=== PATIENT | male | born 1950 | race Caucasian/White ===

== ENCOUNTER → 2020-01-20 | Outpatient (CLI) | payer BC, SELFPAY ==
--- NOTE | 2020-01-20 08:18 | MRI_ITS ---
STUDY: MRI BRAIN WITH AND WITHOUT CONTRAST REASON FOR EXAM: Male, 69 years old. 3RD NERVE PALSEY R EYE TECHNIQUE: Standardized multiplanar fat and water weighted pulse sequences were obtained. IV Yes YES was administered for the contrast portion of the examination. COMPARISON: None. FINDINGS: There is moderate cerebral atrophy with widening of the extra-axial spaces and ventricular dilatation. There are multiple white matter hyperintensities, distributed throughout the deep white matter tracts of the cerebral hemispheres, consistent with moderate chronic white matter ischemic changes. Possible punctate focus of restricted diffusion right colliculus. 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 There is no extra-axial fluid accumulation. Normal flow voids within the major intracranial circulation suggesting patency by spin echo criteria. Normal venous enhancement. There is no enhancing intra-axial or extra-axial abnormality. Normal sella turcica, pituitary gland, infundibular stalk, optic chiasm and hypothalamus. Normal tectal plate and pineal gland. Normal midbrain, sandhya and medulla. Normal cerebellum. Normal basal cisterns. Normal bilateral temporal bones. Normal bilateral internal auditory canals. Possible slight disconjugate gaze. Normal visualized paranasal sinuses. Normal calvarium and skull base. Normal visualized soft tissue structures. Normal visualized upper cervical spine. MRI/Brain W/WO Contrast IMPRESSION: Possible acute or subacute punctate infarct right posterior midbrain Electronically Signed: Nir Reaves MD at 17:49 EDT , Service support ,
--- NOTE | 2020-01-20 08:18 | MRI_ITS ---
STUDY: MRA OF THE HEAD WITHOUT CONTRAST REASON FOR EXAM: Male, 69 years old. 3RD NERVE PALSEY R EYE TECHNIQUE: 3-D lavx-ra-saowku (TOF) imaging was performed with MIPs. The study was performed unenhanced. COMPARISON: None. FINDINGS: Normal bilateral petrous carotid arteries. Normal right cavernous carotid artery with a normal supraclinoid bifurcation. Normal left cavernous carotid artery with a normal supraclinoid bifurcation. Normal right A1 segments of the anterior cerebral artery. Normal left A1 segments of the anterior cerebral artery. Normal intact anterior communicating artery (ACOM). Normal bilateral A2 segments of the anterior cerebral arteries. Normal right M1 and M2 segments of the middle cerebral arteries, with a normal M1 bifurcation. Normal left M1 and M2 segments of the middle cerebral arteries, with a normal M1 bifurcation. There is non-visualization of the right posterior communicating artery (PCOM). There is non-visualization of the left posterior communicating artery (PCOM). Normal bilateral vertebral arteries. Normal basilar artery with a normal basilar bifurcation. The visualized bilateral superior cerebellar (SCA) arteries are normal. Normal bilateral P1, P2 and visualized P3 segments of the posterior cerebral arteries. There is no demonstrated aneurysm of the ey[place] of Marie. There is no major vessel occlusion or hemodynamically significant stenosis. There is no demonstrated abnormality of the visualized brain. MRI/MRA Head ONLY without Contrast IMPRESSION: Normal MRA of the head Electronically Signed: Rica Meneses, at 0:42 EDT Tel , Service support ,
[2020-01-20 09:40] LABS: CREATININE FINGERSTICK 0.8 mg/dL (0.70-1.30); EGFR FINGERSTICK > 60.0000 mL/min (>60)
== END | disposition home or self-care (01) ==
PROVIDERS: Referring Provider Ophthalmology; Visit Provider Ophthalmology
DX: H49.01 Third [oculomotor] nerve palsy, right eye (principal)
CPT/HCPCS: 70544; 70553; A9575

== ENCOUNTER 2021-08-01 03:13 | Inpatient (IN) | payer OTHER, SELFPAY ==
[2021-08-01] VITALS (35 sets, daily range): BP systolic 105–149; BP diastolic 60–75; PULSE 44–66; RESP 12–37; TEMP 35.7–36.9; O2SAT 88–98; BMI 35.9; BMI 36.0
--- NOTE | 2021-08-01 03:17 | EKG12_ITS ---
Test Reason : DYSRHYTHMIA Blood Pressure : / mmHG Vent. Rate : 065 BPM Atrial Rate : 065 BPM P-R Int : 164 ms QRS Dur : 168 ms QT Int : 452 ms P-R-T Axes : 002 018 -02 degrees QTc Int : 470 ms Sinus rhythm with Premature atrial complexes in a pattern of bigeminy Right bundle branch block Abnormal ECG Confirmed by JENA MOE, DEEPA ([id number]), map editor JOHN GRIFFITHS ([id number]) on 08/02/2021 1:20:06 PM Referred By: BAILEY Confirmed By:ABILIO BELLA MD
--- NOTE | 2021-08-01 03:18 | RAD_ITS ---
STUDY: X-RAY CHEST REASON FOR EXAM: Male, 71 years old. Cough TECHNIQUE: Single AP portable view of the chest. COMPARISON: None. FINDINGS: There are multifocal patchy centrally located opacities in the lungs. There is no demonstrated pleural abnormality. There is mild cardiac enlargement. Normal mediastinum and reema. Normal visualized pulmonary arteries. Normal visualized aortic arch and descending thoracic aorta. There are diffuse degenerative changes of the visualized thoracic spine. Normal visualized ribs, clavicles, and shoulders. There is no demonstrated abnormality of the visualized soft tissue structures of the upper abdomen. RAD/Chest 1 View (Portable) IMPRESSION: Multifocal centrally located patchy groundglass opacities consider pulmonary edema and/or diffuse pneumonia. Electronically Signed: Clarissa Montes MD at 3:52 EDT Tel , Service support ,
[2021-08-01] MEDS: dexAMETHasone 4 MG/ML Vial 6 MG IV (03:25)
--- NOTE | 2021-08-01 03:25 | EDS_ITS ---
HPI History of Present Illness Chief Complaint: Shortness of Breath Informant: patient and EMS Onset/Context/Timing Onset: Days Narrative Narrative: Patient presents via EMS secondary to shortness of breath. Patient states he developed symptoms of Covid on the . He was not able to be tested until Thursday the and tested positive. He called squad early this morning secondary to increased shortness of breath. He does report cough. EMS notes his O2 sat was in the 60s in the house. On nonrebreather he is satting 88% on arrival to the ER. Patient is alert and answering questions. He does not appear to be in distress. He states he has multiple medications for medical problems but does not know specific details. He does note that he is on Plavix because of a heart stent. [facility] Medical History (Updated 08/01/21 @ 05:[address] Tara Melgar MD) CAD (coronary artery disease) Diabetes HLD (hyperlipidemia) Hypertension Myocardial infarct Home Medications allopurinol 300 mg PO DAILY 08/01/21 [History Last Taken Unknown] allopurinol 300 mg PO DAILY 08/01/21 [History Last Taken Unknown] amlodipine 5 mg PO DAILY 08/01/21 [History Last Taken Unknown] amlodipine 5 mg PO DAILY 08/01/21 [History Last Taken Unknown] aspirin [Baby Aspirin] 81 mg PO DAILY 08/01/21 [History Last Taken Unknown] atorvastatin 40 mg PO DAILY 08/01/21 [History Last Taken Unknown] atorvastatin 40 mg PO QHS 08/01/21 [History Last Taken Unknown] carvedilol 25 mg PO BID 08/01/21 [History Last Taken Unknown] chlorthalidone 25 mg PO DAILY 08/01/21 [History Last Taken Unknown] chlorthalidone 25 mg PO DAILY 08/01/21 [History Last Taken Unknown] clopidogrel 75 mg PO DAILY 08/01/21 [History Last Taken Unknown] clopidogrel 75 mg PO DAILY 08/01/21 [History Last Taken Unknown] furosemide 20 mg PO DAILY 08/01/21 [History Last Taken Unknown] furosemide 20 mg PO DAILY 08/01/21 [History Last Taken Unknown] lisinopril 40 mg PO DAILY 08/01/21 [History Last Taken Unknown] lisinopril 40 mg PO DAILY 08/01/21 [History Last Taken Unknown] metformin 1,000 mg PO DAILY 08/01/21 [History Last Taken Unknown] metformin 500 mg PO DAILY 08/01/21 [History Last Taken Unknown] metformin 500 mg PO UD 08/01/21 [History Last Taken Unknown] naproxen 250 mg PO BID 08/01/21 [History Last Taken Unknown] Allergy/AdvReac Type Severity Reaction Status Date / Time ticagrelor [From Brilinta] Allergy Shortness Verified 08/01/21 03:19 of breath Family History (Updated 08/01/21 @ 05:[address] Tara Melgar MD) Mother Hypertension Surgical History (Updated 08/01/21 @ 05:[address] Tara Melgar MD) History of coronary artery stent placement S/P appendectomy Social History (Updated 08/01/21 @ 05:[address] Tara Melgar MD) household members: spouse Smoking Status: Never smoker alcohol intake: current alcohol intake frequency: holidays/special occasions only substance use type: does not use ROS ROS ED Constitutional Constitutional ED: Denies chills or fever(s) Eyes Eyes: Denies change in vision ENT ENT ED: Denies sore throat Cardiovascular Cardiovascular: Denies chest pain Respiratory/Chest Respiratory/Chest: Reports cough and dyspnea Gastrointestinal Gastrointestinal: Denies abdominal pain, diarrhea or vomiting Musculoskeletal Musculoskeletal: Denies back pain Integumentary Denies rash Neurologic Neurologic: Denies headache(s) or weakness Allergic/Immunologic Allergic/Immunologic ED: Denies urticaria EXAM Physical Exam Const Vital Signs: 08/01/21 03:14 08/01/21 03:19 08/01/21 03:27 Temperature 98.3 F Temperature Source Temporal Pulse Rate 66 Respiratory Rate 30 H 29 H Respiratory Effort Short of Breath Accessory Muscle Use Respiratory Pattern Tachypnea Blood Pressure 149/75 H Blood Pressure Mean 99 Pulse Ox 88 94 Oxygen Delivery Method Non-Rebreather Non-Rebreather Bi-pap Oxygen Flow Rate (L/min) 15 15 Fraction of Inspired Oxygen (FIO2) 100 08/01/21 03:30 08/01/21 04:10 Temperature 98.5 F Temperature Source Temporal Pulse Rate 65 54 L Respiratory Rate 36 H 33 H Respiratory Effort Respiratory Pattern Tachypnea Blood Pressure 127/60 H Blood Pressure Mean 82 Pulse Ox 98 96 Oxygen Delivery Method Bi-pap Oxygen Flow Rate (L/min) Fraction of Inspired Oxygen (FIO2) 100 Positive well nourished and well developed General Appearance ED: well developed HEENT Reports normocephalic and head/scalp atraumatic Eyes PERRL and EOMs intact bilaterally Neck supple Chest Wall inspection of chest normal and palpation of chest normal Resp Resp Narrative: Mildly tachypneic. Auscultation: diminished lung sounds Cardio regular rate and regular rhythm GI non-tender Palpation: soft Extremity normal to inspection Neuro oriented x3 Neuro Narrative: No focal neuro deficits. Sensorium / Orientation: alert Psych mental status grossly normal Skin no rashes or lesions noted MDM MDM MDM Narrative Medical decision making narrative: On arrival to the emergency room patient was satting 88% on nonrebreather. He was placed on BiPAP. O2 sats are now in the mid 90s. Lab work, chest x-ray, EKG obtained. Lab Data Attestation: I reviewed the patient's lab results. Labs: Laboratory Results - last 24 hr 08/01/21 08/01/21 08/01/21 03:25 03:25 03:25 WBC 7.6 RBC 4.49 L Hgb 14.1 Hct 42.3 MCV 94.2 H MCH 31.4 MCHC 33.3 RDW Std Deviation 49.0 H RDW Coeff of Myriam 14.3 Plt Count 219 MPV 10.6 Immature Gran % (Auto) 2.100 H Neut % (Auto) 81.2 H Lymph % (Auto) 13.3 L Jones % (Auto) 2.6 Eos % (Auto) 0.3 Baso % (Auto) 0.5 Absolute Neuts (auto) 6.2 Absolute Lymphs (auto) 1.01 Nucleated RBC % 0 D-Dimer Quant (PE/DVT) 2.34 H* Sodium Potassium Chloride Carbon Dioxide Anion Gap BUN Creatinine Estim Creat Clear Calc Est GFR (MDRD) Af Amer Est GFR (MDRD) Non-Af BUN/Creatinine Ratio Glucose Lactic Acid Calcium Magnesium Ferritin Total Bilirubin AST ALT Alkaline Phosphatase Lactate Dehydrogenase Troponin I High Sens C-React Prot Ext Range B-Natriuretic Peptide Total Protein Albumin Globulin Albumin/Globulin Ratio Procalcitonin 0.09 08/01/21 08/01/21 08/01/21 03:25 03:25 03:25 WBC RBC Hgb Hct MCV MCH MCHC RDW Std Deviation RDW Coeff of Myriam Plt Count MPV Immature Gran % (Auto) Neut % (Auto) Lymph % (Auto) Jones % (Auto) Eos % (Auto) Baso % (Auto) Absolute Neuts (auto) Absolute Lymphs (auto) Nucleated RBC % D-Dimer Quant (PE/DVT) Sodium 137 Potassium 3.4 L Chloride 102 Carbon Dioxide 27.0 Anion Gap 8 BUN 35 H Creatinine 0.82 Estim Creat Clear Calc 88.00 Est GFR (MDRD) Af Amer 120 Est GFR (MDRD) Non-Af 99 BUN/Creatinine Ratio 42.9 H Glucose 163 H Lactic Acid 2.3 H* Calcium 8.1 L Magnesium 2.1 Ferritin 1514 H Total Bilirubin 1.00 AST 79 H ALT 58 Alkaline Phosphatase 77 Lactate Dehydrogenase 609 H Troponin I High Sens 24 C-React Prot Ext Range 84.90 H B-Natriuretic Peptide Total Protein 7.0 Albumin 2.5 L Globulin 4.5 H Albumin/Globulin Ratio 0.6 L Procalcitonin 08/01/21 03:25 WBC RBC Hgb Hct MCV MCH MCHC RDW Std Deviation RDW Coeff of Myriam Plt Count MPV Immature Gran % (Auto) Neut % (Auto) Lymph % (Auto) Jones % (Auto) Eos % (Auto) Baso % (Auto) Absolute Neuts (auto) Absolute Lymphs (auto) Nucleated RBC % D-Dimer Quant (PE/DVT) Sodium Potassium Chloride Carbon Dioxide Anion Gap BUN Creatinine Estim Creat Clear Calc Est GFR (MDRD) Af Amer Est GFR (MDRD) Non-Af BUN/Creatinine Ratio Glucose Lactic Acid Calcium Magnesium Ferritin Total Bilirubin AST ALT Alkaline Phosphatase Lactate Dehydrogenase Troponin I High Sens C-React Prot Ext Range B-Natriuretic Peptide 51.9 Total Protein Albumin Globulin Albumin/Globulin Ratio Procalcitonin Radiography Chest X-Ray - ED: 1 View, Read by ED Physician, Right Infiltrate and Left Infiltrate Diagnostic Testing: Radiology Impression Chest X-Ray 08/01/21 03:18 IMPRESSION: Multifocal centrally located patchy groundglass opacities consider pulmonary edema and/or diffuse pneumonia. Electronically Signed: Clarissa Montes MD at 3:52 EDT Tel , Service support , Chest CTA 08/01/21 04:12 IMPRESSION: Multifocal pneumonia pattern which is most likely consistent with Covid pneumonia. NO pulmonary embolism. Partially visualized splenomegaly. Cardiomegaly coronary disease. Degenerative change of the shoulder joints and thoracic spine. Electronically Signed: Clarissa Montes MD at 5:18 EDT Tel , Service support , EKG Initial EKG: Attestation: I personally reviewed and interpreted this EKG as follows: Interpretation: Sinus Rhythm (Sinus at 65 with right bundle branch block. No prior studies available for comparison. No obvious ischemia.) Treatment and Re-Evaluation Comments:: On BiPAP patient's O2 sats are in the mid 90s. He is requiring 100% FiO2. Chest x-ray shows significant bilateral infiltrates. White count is normal. D-dimer is elevated. I will speak with hospitalist for admission to ICU. We will obtain CTA of the chest prior to the patient going upstairs. Patient was given a dose of Decadron on arrival. Critical Care Time Critical care time (excluding procedures): 30-74 minutes (35), Discussing w/Patient &/or Family/Nub Card Tender, Arranging Admission or Transfer and Performing Direct Patient Care at Bedside Discharge Plan Dx/Rx/DC Orders Clinical Impression: COVID-19, Pneumonia due to COVID-19 virus, Respiratory failure Disposition Disposition: Acute Care Hospital [facility] Discharge Date/Time: 08/01/21 05:32
[2021-08-01 03:54] LABS: Absolute Lymphocyte Count 1.01 X10^3/uL (0.83-4.51); Absolute Neutrophil Count 6.2 X10^3/uL (2.0-7.7); Basophil# 0.04 X10^3/uL; Basophil% 0.5 % (0-1); Eosinophil# 0.02 X10^3/uL; Eosinophils% 0.3 % (0-5); Hematocrit 42.3 % (40-54); Hemoglobin 14.1 g/dL (13.0-16.5); Lymphocyte # 1.01 X10^3/ul (0.83-4.51); Lymphocyte % 13.3 % (19-41); Mean Corp Hgb Conc 33.3 g/dL (32-36); Mean Corpuscular Hgb 31.4 pg (27.0-32.0); Mean Corpuscular Volume 94.2 fL (80-94); Mean Platelet Vol. 10.6 fl (6.2-12.0); Monocyte% 2.6 % (0-10); NRBC Flagged by Analyzer 0 % (0-5); Neutrophil # 6.16 X10^3/uL (2.7-7.7); Neutrophil % 81.2 % (47-70); Platelet Count 219 K/mm3 (150-450); RBC Distribution Width CV 14.3 % (11.6-14.6); Red Blood Count 4.49 M/mm3 (4.6-6.2); White Blood Count 7.6 K/mm3 (4.4-11.0)
[2021-08-01 04:03] LABS: D-Dimer Quantitative (DVT/PE) 2.34 FEU/ug/m (0.27-0.49)
[2021-08-01 04:09] LABS: ALB/GLOB Ratio 0.6 RATIO (0.9-2.4); AST(SGOT) 79 U/L (15-37); Alanine Aminotransfer ALT/SGPT 58 U/L (16-61); Albumin, Serum 2.5 g/dL (3.2-5.0); Alkaline Phosphatase 77 U/L (45-117); Anion Gap 8 (5-15); BUN 35 mg/dL (7-18); BUN/Creat Ratio 42.9 RATIO (10-20); Calcium,Total 8.1 mg/dL (8.5-10.1); Chloride 102 mmol/L (98-107); Creatinine, Serum 0.82 mg/dL (0.70-1.30); EST Glomerular Filtration Rate 99 mL/min (>60); Est Glom Filt Rate - Afr Amer 120 mL/min (>60); Globulin 4.5 g/dL (2.2-4.2); Glucose 163 mg/dL (74-106); Potassium 3.4 mmol/L (3.5-5.1); Sodium Level 137 mmol/L (136-145); Troponin-I HS 24 pg/mL (3.0-78.0)
--- NOTE | 2021-08-01 04:12 | CT_ITS ---
STUDY: CTA CHEST REASON FOR EXAM: Male, 71 years old. Covid +, resp failure, elevated d-dimer RADIATION DOSAGE (If Supplied By Facility): CTDIvol = ( 13.85 ) mGy, DLP = ( 466.93 ) mGycm TECHNIQUE: The examination was performed with the intravenous administration of IV 100mL Isovue-370. Post-processing of the angiographic images was performed, with multiplanar reformation and 3D reconstruction. Individualized dose optimization techniques were used for this CT. COMPARISON: Chest x-ray August 01, 2021 chest x-ray FINDINGS: Normal enhancement of the main pulmonary artery and right and left pulmonary arteries. Normal enhancement of the bilateral peripheral pulmonary arteries. There is no demonstrated pulmonary embolism. There is limited contrast enhancement of the aorta at the time of this study there is partial calcification. There is no demonstrated aortic dissection. There are coronary calcifications. There is a stent in the left anterior descending coronary artery. There are nonspecific subcentimeter mediastinal lymph nodes. Normal hilar regions. Normal visualized trachea and bronchi. There multifocal patchy groundglass opacities some areas of crazy paving. Normal pleura. Normal chest wall structures. There are degenerative changes of thoracic spine. There is advanced degenerative change of the left greater than right shoulder joints. There is moderate splenomegaly CT/CTA Chest W/WO Contrast IMPRESSION: Multifocal pneumonia pattern which is most likely consistent with Covid pneumonia. NO pulmonary embolism. Partially visualized splenomegaly. Cardiomegaly coronary disease. Degenerative change of the shoulder joints and thoracic spine. Electronically Signed: Clarissa Montes MD at 5:18 EDT Tel , Service support ,
[2021-08-01 04:16] LABS: Procalcitonin 0.09 ng/mL (0.00-0.09)
[2021-08-01 04:34] LABS: Lactic Acid 2.3 mmol/L (0.4-1.9)
--- NOTE | 2021-08-01 04:38 | PCM.HP.STD ---
HPI - General General Date of Admission: 08/01/21 Date of Service: 08/01/21 HPI Narrative The patient is a 71 y/o M w/ PMHx: CAD s/p PCI, HTN, HLD, Diabetes mellitus type II, Obesity who presents to the [facility] ED on 08/01/21 with history of onset Covid type symptoms on 07/20/2021, testing eventually on 07/26/2021 with positive status with progressively worsening dyspnea as well as cough with EMS call secondary to severity reporting that his oxygenation was 60% upon their initial evaluation with immediate necessity for nonrebreather prompting transition to the ED for evaluation. Patient is unvaccinated. He reports symptoms including loss of taste and smell, nausea without emesis, occasional loose stool without abdominal cramping in addition to cough and dyspnea. He denies any fever, chills associated. He notes his is also ill but reports her as being less severe. Work-up in the ED included T 98.3, heart 66, BP 149/75, respiratory rate 30 initially with pulse ox 88% on a nonrebreather transition to BiPAP with respiratory rate 36, 98% on 100 FiO2, rapid Covid antigen positive, CBC w/ WBC 7.6, hemoglobin 14.1, platelet 219 with mildly increased immature granulocytes, D-dimer 2.34, CMP with potassium 3.4, BUN/creatinine 35/0.82, glucose 163, lactic acid 2.3, AST/ALT 79/58, alk phos 77, procalcitonin 0.09, high-sensitivity troponin 24, chest x-ray with multifocal centrally located patchy groundglass opacities, CTPA multifocal pneumonia consistent with Covid pneumonia with no evidence of pulmonary emboli, cardiomegaly with coronary disease, partially visualized splenomegaly. In the ED given patient presentation, patient as noted transition to BiPAP, administered IV Decadron 6 mg x 1. [facility] Medical History (Updated 08/01/21 @ 05:[address] Tara Melgar MD) CAD (coronary artery disease) Diabetes HLD (hyperlipidemia) Hypertension Myocardial infarct Home Medications allopurinol 300 mg PO DAILY 08/01/21 [History Last Taken Unknown] allopurinol 300 mg PO DAILY 08/01/21 [History Last Taken Unknown] amlodipine 5 mg PO DAILY 08/01/21 [History Last Taken Unknown] amlodipine 5 mg PO DAILY 08/01/21 [History Last Taken Unknown] aspirin [Baby Aspirin] 81 mg PO DAILY 08/01/21 [History Last Taken Unknown] atorvastatin 40 mg PO DAILY 08/01/21 [History Last Taken Unknown] atorvastatin 40 mg PO QHS 08/01/21 [History Last Taken Unknown] carvedilol 25 mg PO BID 08/01/21 [History Last Taken Unknown] chlorthalidone 25 mg PO DAILY 08/01/21 [History Last Taken Unknown] chlorthalidone 25 mg PO DAILY 08/01/21 [History Last Taken Unknown] clopidogrel 75 mg PO DAILY 08/01/21 [History Last Taken Unknown] clopidogrel 75 mg PO DAILY 08/01/21 [History Last Taken Unknown] furosemide 20 mg PO DAILY 08/01/21 [History Last Taken Unknown] furosemide 20 mg PO DAILY 08/01/21 [History Last Taken Unknown] lisinopril 40 mg PO DAILY 08/01/21 [History Last Taken Unknown] lisinopril 40 mg PO DAILY 08/01/21 [History Last Taken Unknown] metformin 1,000 mg PO DAILY 08/01/21 [History Last Taken Unknown] metformin 500 mg PO DAILY 08/01/21 [History Last Taken Unknown] metformin 500 mg PO UD 08/01/21 [History Last Taken Unknown] naproxen 250 mg PO BID 08/01/21 [History Last Taken Unknown] Allergy/AdvReac Type Severity Reaction Status Date / Time ticagrelor [From Brilinta] Allergy Shortness Verified 08/01/21 03:19 of breath Family History (Updated 08/01/21 @ 05:[address] Tara Melgar MD) Mother Hypertension other (Father without marked medical history; however, when patient was 5 in accident.) Surgical History (Updated 08/01/21 @ 05:[address] Tara Melgar MD) History of coronary artery stent placement S/P appendectomy Social History (Updated 08/01/21 @ 05:[address] Tara Melgar MD) household members: spouse Smoking Status: Never smoker alcohol intake: current alcohol intake frequency: holidays/special occasions only substance use type: does not use ROS ROS Narrative Admission Review of Systems: CONSTITUTIONAL: No weight loss, fever, chills, + weakness or fatigue. HEENT: + Loss of sense of taste and smell. Eyes: No visual loss, blurred vision, double vision or yellow sclerae. Ears, Nose, Throat: No hearing loss, sneezing, congestion, runny nose or sore throat. SKIN: No rash or itching, lesions, wounds. CARDIOVASCULAR: No chest pain, chest pressure or chest discomfort, palpitations, edema, orthopnea, syncopal events. RESPIRATORY: + shortness of breath, cough, No marked sputum, wheezing, hemoptysis. GASTROINTESTINAL: + anorexia, nausea without vomiting, diarrhea, No abdominal pain, melena, BRBPR. GENITOURINARY: No dysuria, frequency, urgency or retention. NEUROLOGICAL: No headache, dizziness, syncope, paralysis, ataxia, numbness or tingling in the extremities, focal weakness, change in bowel or bladder control, seizure. MUSCULOSKELETAL: No muscle, back pain, joint pain or stiffness. HEMATOLOGIC: No anemia, bleeding or bruising. LYMPHATICS: No enlarged nodes. No history of splenectomy. PSYCHIATRIC: No history of depression or anxiety. ENDOCRINOLOGIC: No reports of sweating, cold or heat intolerance. No polyuria or polydipsia. ALLERGIES: No history of asthma, hives, eczema or rhinitis. Vital Signs Vital Signs Vital Signs: 08/01/21 03:14 08/01/21 03:19 08/01/21 03:27 Temperature 98.3 F Temperature Source Temporal Pulse Rate 66 Respiratory Rate 30 H 29 H Respiratory Effort Short of Breath Accessory Muscle Use Respiratory Pattern Tachypnea Blood Pressure 149/75 H Blood Pressure Mean 99 Pulse Ox 88 94 Oxygen Delivery Method Non-Rebreather Non-Rebreather Bi-pap Oxygen Flow Rate (L/min) 15 15 Fraction of Inspired Oxygen (FIO2) 100 08/01/21 03:30 08/01/21 04:10 Temperature 98.5 F Temperature Source Temporal Pulse Rate 65 54 L Respiratory Rate 36 H 33 H Respiratory Effort Respiratory Pattern Tachypnea Blood Pressure 127/60 H Blood Pressure Mean 82 Pulse Ox 98 96 Oxygen Delivery Method Bi-pap Oxygen Flow Rate (L/min) Fraction of Inspired Oxygen (FIO2) 100 Weight Weight: 257 lb 11.526 oz Body Mass Index (BMI) 35.9 Physical Exam Narrative Physical Examination: General: Awake, alert, oriented x 3 and cooperative, seated upright in the ED bed, BiPAP in place, still some accessory muscle usage and tachypnea. Skin: Normal color, normal turgor, no icterus, no cyanosis. HEENT: AT/NC, EOMI, PERRLA, dry MM, BiPAP in place, difficult to discern any carotid bruit secondary to BiPAP noises, unable to discern NG JVD secondary to thickened neck. Lungs: Diffusely diminished breath sounds, greater bases, BiPAP in place, still ongoing mild accessory muscle usage with tachypnea, no rales, ronchi or wheezing. Heart: Regular rate and rhythm; no gallop, rub audible. Abdomen: Soft, obese, NTTP, difficult to discern distention given habitus, distant normal bowel sounds, difficult to discern any HSM secondary to habitus. Extremities: No cyanosis, clubbing, or edema. Neurological: Patient awake, alert, oriented as noted, cognitive function intact; pupils equally reactive to light and accommodation, cranial nerves II-XII grossly normal, moving all 4 extremities, no focal deficits, strength severely global decrease secondary to acute presentation. Psychiatric: Affect appears ill, evidence of respiratory distress, improved since initial ED presentation, no acute evidence of depressive or anxiety feelings. Results Lab / Micro Data Result Diagrams: 08/01/21 03:25 08/01/21 03:25 Labs: Laboratory Results - last 24 hr 08/01/21 03:25: D-Dimer Quant (PE/DVT) 2.34 H* 08/01/21 03:25: Procalcitonin 0.09 08/01/21 03:25: WBC 7.6, RBC 4.49 L, Hgb 14.1, Hct 42.3, MCV 94.2 H, MCH 31.4, MCHC 33.3, RDW Std Deviation 49.0 H, RDW Coeff of Myriam 14.3, Plt Count 219, MPV 10.6, Immature Gran % (Auto) 2.100 H, Neut % (Auto) 81.2 H, Lymph % (Auto) 13.3 L, [place] % (Auto) 2.6, Eos % (Auto) 0.3, Baso % (Auto) 0.5, Absolute Neuts (auto) 6.2, Absolute Lymphs (auto) 1.01, Nucleated RBC % 0 08/01/21 03:25: Sodium 137, Potassium 3.4 L, Chloride 102, Carbon Dioxide 27.0, Anion Gap 8, BUN 35 H, Creatinine 0.82, Estim Creat Clear Calc 88.00, Est GFR (MDRD) Af Amer 120, Est GFR (MDRD) Non-Af 99, BUN/Creatinine Ratio 42.9 H, Glucose 163 H, Calcium 8.1 L, Total Bilirubin 1.00, AST 79 H, ALT 58, Alkaline Phosphatase 77, Troponin I High Sens 24, Total Protein 7.0, Albumin 2.5 L, Globulin 4.5 H, Albumin/Globulin Ratio 0.6 L 08/01/21 03:25: Lactic Acid 2.3 H* Micro: Microbiology 08/01/21 03:20 Nasal Secretion SARS-CoV-2 Antigen (Rapid) - Final Radiology Impression Chest X-Ray 08/01/21 03:18 IMPRESSION: Multifocal centrally located patchy groundglass opacities consider pulmonary edema and/or diffuse pneumonia. Electronically Signed: Clarissa Montes MD at 3:52 EDT Tel , Service support , Assessment & Plan Assessment/Plan (1) Respiratory failure: QUALIFIERS: Chronicity: acute Respiratory failure complication: hypoxia Qualified Code(s): J96.01 - Acute respiratory failure with hypoxia (2) Pneumonia due to COVID-19 virus: PLAN: The patient is a 71 y/o M w/ PMHx: CAD s/p PCI, HTN, HLD, Diabetes mellitus type II, Obesity who presents to the [facility] ED on 08/01/21 with history of onset Covid type symptoms on 07/20/2021, testing eventually on 07/26/2021 with positive status with progressively worsening dyspnea as well as cough with EMS call secondary to severity reporting that his oxygenation was 60% upon their initial evaluation with immediate necessity for nonrebreather prompting transition to the ED for evaluation. 1. Acute Hypoxic Respiratory Failure secondary to Acute Bilateral Pneumonia secondary to Acute Viral Syndrome, COVID-19 with lactic acidosis likely secondary to hypoxemia: Acute Severe Sepsis secondary to Acute Pneumonia secondary to Acute Viral Syndrome, COVID-19: Will admit to the COVID unit, will maintain on oxygen with wean as tolerated to room air, PRN albuterol, HOB, IS parameters w/ pending sputum cultures, respiratory viral panel and urine antigens, will obtain D-dimer, CRP, CPK, Ferritin, LDH, trop and BNP, continue supportive care including q 2 hour turning including prone given no prone bed availability and judicious hydration, closely monitor for worsening status for ARDS and multiorgan failure, will consult Infectious disease, will initiate and continue IV decadron x 10 doses. Patient is > 10 days from onset sxs therefore unable to administer IV remdesivir. We will consult infectious disease and request initiation of potentially baricitinib regimen. Will add vitamin C and zinc regimen. 2. Hypokalemia: Admission K+ 3.4, magnesium level requested, supplementation given, repeat level in AM. 3. Diabetes mellitus type II: Hold oral home regimen, n.p.o. status given severity of presentation, once appropriate transition to ADA diet, accu checks w/ ISS. 4. CAD: Status post PCI x2 per patient report, will continue Plavix, statin, lisinopril, Coreg regimen. 5. Hypertension: Continue home regimen including amlodipine, Coreg, chlorthalidone, Lasix with hold parameters as needed, PRN hydralazine. 6. Hyperlipidemia: We will continue home statin therapy. 7. Gout: We will continue patient home allopurinol regimen. 8. Obesity: Encouraged lifestyle and diet changes. 9. DVT prophylaxis: SCDs, Lovenox. 10. CODE status: Patient does not have HCPOA nor living will in place. Given acute presentation with respiratory failure with COVID, discussed CODE status at length including difference between FULL code, DNR-CCA and DNR-CC status. Following discussions about the differences in these status, requested currently to maintain DNR-CCA, no intubation status until he reviews this with his . Discussed his current precarious status, the very serious nature of COVID PNA and encouraged him to review these with her early in his presentation. Advanced Care Planning Face to Face Time: 16 minutes. Charges/Coding Visit Charges Inpatient E&M: 31218 Init Hosp L3 Procedures Hospitalists Procedures: [id number] Advncd Care Plan 30 Min
[2021-08-01 05:11] LABS: Ferritin 1514 ng/mL (26-388); LDH 609 U/L (87-241); Magnesium 2.1 mg/dL (1.6-2.6)
[2021-08-01 05:20] LABS: BNP,B-Type NATRIURETIC PEPTIDE 51.9 pg/mL (0-100)
[2021-08-01 07:39] LABS: Reflex Lactate? Y
[2021-08-01] MEDS: 0.9% Normal Saline 1,000 ML 100 ML IV (09:26)
--- NOTE | 2021-08-01 09:30 | EX.PCM.CONCC ---
Assessment & Plan Assessment/Plan (1) COVID-19: (2) Respiratory failure: QUALIFIERS: Chronicity: acute Respiratory failure complication: hypoxia Qualified Code(s): J96.01 - Acute respiratory failure with hypoxia PLAN: RECOMMENDATIONS: 1. Continue noninvasive positive pressure ventilatory support. Wean FiO2 to maintain oxygen saturations at or above 90%. 2. Obtain arterial blood gas. 3. Continue Decadron to complete 10-day treatment course. 4. Continue baricitinib per ID recommendations. 5. Stop continuous IV fluids. IMPRESSIONS: 1. Acute hypoxemic respiratory failure secondary to COVID-19 pneumonia The patient presented to the hospital with progressive Covid symptoms, which initially began on July 20. The patient is currently outside of the window to administer remdesivir. Therefore, he will be continued on Decadron to complete a 10-day treatment course. CTA showed no evidence for PE. Therefore, the patient will be continued on twice daily Lovenox. Infectious diseases has placed the patient on baricitinib, which will be continued to complete a treatment course. For now, the patient will be continued on noninvasive positive pressure ventilatory support, with a goal to wean FiO2 to maintain oxygen saturations at or above 90%. Periodic use of diuretics can be entertained to maintain euvolemic state. 2. Hypokalemia Electrolyte repletion as ordered. Recheck levels in the morning. 3. Obesity/diabetes mellitus/history of coronary artery disease status post PCI/hypertension/hyperlipidemia Complicates care, management, recovery and prognosis. Continue home medications as indicated. TIME: 35 minutes of critical care time, independent of procedures, was spent addressing the patient's acute hypoxemic respiratory failure secondary to COVID-19 pneumonia, review of all data and collaboration with the care team. ([id number]) HPI Consult Data Date of Consult: 08/02/21 HPI Narrative Reason for Consultation: Acute hypoxemic respiratory failure secondary to COVID-19 pneumonia HPI Narrative: The patient is a 71-year-old male, with a history as outlined below, who presented to the emergency department on August 01 with progressive dyspnea and cough. The patient's symptoms initially began on July 20. The patient was subsequently tested and found to be positive for coronavirus on July 26. The patient is not vaccinated. He denies any sick contact exposure. On presentation to the emergency department, the patient was noted to be afebrile and hemodynamically stable. He was, nevertheless, tachypneic and hypoxemic. Laboratory evaluation revealed a normal white blood cell count. Coagulation profile revealed a D-dimer of 2.3. Chemistry profile was notable for a potassium of 3.4. Lactate was elevated to 2.3. CRP was elevated 84. CTA chest showed no evidence for PE. Multifocal bilateral groundglass changes were noted. The patient was subsequently transferred to the medical intensive care unit for further management. Due to increased work of breathing and hypoxemia, the patient was placed on BiPAP therapy. He is currently receiving Decadron. Infectious diseases was contacted and has initiated the patient on baricitinib. The patient remains on Lovenox twice daily. [facility] Medical History CAD (coronary artery disease) Diabetes HLD (hyperlipidemia) Hypertension Myocardial infarct Home Medications allopurinol 300 mg PO DAILY 08/01/21 [History Last Taken Unknown] allopurinol 300 mg PO DAILY 08/01/21 [History Last Taken Unknown] amlodipine 5 mg PO DAILY 08/01/21 [History Last Taken Unknown] amlodipine 5 mg PO DAILY 08/01/21 [History Last Taken Unknown] aspirin [Baby Aspirin] 81 mg PO DAILY 08/01/21 [History Last Taken Unknown] atorvastatin 40 mg PO DAILY 08/01/21 [History Last Taken Unknown] atorvastatin 40 mg PO QHS 08/01/21 [History Last Taken Unknown] carvedilol 25 mg PO BID 08/01/21 [History Last Taken Unknown] chlorthalidone 25 mg PO DAILY 08/01/21 [History Last Taken Unknown] chlorthalidone 25 mg PO DAILY 08/01/21 [History Last Taken Unknown] clopidogrel 75 mg PO DAILY 08/01/21 [History Last Taken Unknown] clopidogrel 75 mg PO DAILY 08/01/21 [History Last Taken Unknown] furosemide 20 mg PO DAILY 08/01/21 [History Last Taken Unknown] furosemide 20 mg PO DAILY 08/01/21 [History Last Taken Unknown] lisinopril 40 mg PO DAILY 08/01/21 [History Last Taken Unknown] lisinopril 40 mg PO DAILY 08/01/21 [History Last Taken Unknown] metformin 1,000 mg PO DAILY 08/01/21 [History Last Taken Unknown] metformin 500 mg PO DAILY 08/01/21 [History Last Taken Unknown] metformin 500 mg PO UD 08/01/21 [History Last Taken Unknown] naproxen 250 mg PO BID 08/01/21 [History Last Taken Unknown] Allergy/AdvReac Type Severity Reaction Status Date / Time ticagrelor [From Brilinta] Allergy Shortness Verified 08/01/21 03:19 of breath Family History (Updated 08/01/21 @ 05:[address] Tara Melgar MD) Mother Hypertension Family History other Surgical History (Updated 08/01/21 @ 05:[address] Tara Melgar MD) History of coronary artery stent placement S/P appendectomy Social History (Updated 08/01/21 @ 05:[address] Tara Melgar MD) household members: spouse Smoking Status: Never smoker alcohol intake: current alcohol intake frequency: holidays/special occasions only substance use type: does not use ROS Constitutional Constitutional: Reports fatigue and malaise; Denies headache(s) Eyes Eyes: Denies blurry vision or change in vision ENT HEENT: Reports headache(s); Denies dizziness, loss taste/smell or nasal congestion Cardiovascular Cardiovascular: Reports dyspnea; Denies chest pain Respiratory/Chest Respiratory/Chest: Reports cough and dyspnea Gastrointestinal Gastrointestinal: Denies abdominal pain, diarrhea, nausea or vomiting Genitourinary Genitourinary: Denies difficulty urinating Musculoskeletal Musculoskeletal: Denies arthralgias, back pain or joint pain Integumentary Integumentary: Denies lesions, rash or skin ulcer Neurologic Neurologic: Denies abnormal gait or abnormal speech Psychiatric Psychiatric: Denies anxiety or depression Endocrine Endocrinology: Reports fatigue Hematologic/Lymphatic Hematologic/Lymphatic: Denies easy bleeding or easy bruising Physical Exam Const alert Constitutional Narrative: Fatigued in appearance. General Appearance: cooperative and ill appearing Nutritional Appearance: obese HEENT normocephalic and head/scalp atraumatic Eyes PERRL and EOMs intact bilaterally Neck supple General: trachea midline Chest inspection of chest normal Resp Effort and Inspection: tachypneic Auscultation: diminished lung sounds; Negative for rales, rhonchi or wheezes Cardio regular rate and regular rhythm GI normal to inspection, nondistended, normoactive bowel sounds Extremity no clubbing, cyanosis or edema Skin no rashes or lesions noted Neuro CN's II-XII intact bilaterally, moves all extremities and no focal motor deficits Psych Mood & Affect: flat affect Lab / Micro Data Result Diagrams: 08/02/21 05:30 08/02/21 05:30 Labs: Laboratory Results - last 24 hr 08/01/21 03:25: D-Dimer Quant (PE/DVT) 2.34 H* 08/01/21 03:25: Procalcitonin 0.09 08/01/21 03:25: WBC 7.6, RBC 4.49 L, Hgb 14.1, Hct 42.3, MCV 94.2 H, MCH 31.4, MCHC 33.3, RDW Std Deviation 49.0 H, RDW Coeff of Myriam 14.3, Plt Count 219, MPV 10.6, Immature Gran % (Auto) 2.100 H, Neut % (Auto) 81.2 H, Lymph % (Auto) 13.3 L, [place] % (Auto) 2.6, Eos % (Auto) 0.3, Baso % (Auto) 0.5, Absolute Neuts (auto) 6.2, Absolute Lymphs (auto) 1.01, Nucleated RBC % 0 08/01/21 03:25: Sodium 137, Potassium 3.4 L, Chloride 102, Carbon Dioxide 27.0, Anion Gap 8, BUN 35 H, Creatinine 0.82, Estim Creat Clear Calc 88.00, Est GFR (MDRD) Af Amer 120, Est GFR (MDRD) Non-Af 99, BUN/Creatinine Ratio 42.9 H, Glucose 163 H, Calcium 8.1 L, Total Bilirubin 1.00, AST 79 H, ALT 58, Alkaline Phosphatase 77, Troponin I High Sens 24, Total Protein 7.0, Albumin 2.5 L, Globulin 4.5 H, Albumin/Globulin Ratio 0.6 L 08/01/21 03:25: Lactic Acid 2.3 H* 08/01/21 03:25: Magnesium 2.1, Ferritin 1514 H, Lactate Dehydrogenase 609 H, C-React Prot Ext Range 84.90 H 08/01/21 03:25: B-Natriuretic Peptide 51.9 Micro: Microbiology 08/01/21 03:20 Nasal Secretion SARS-CoV-2 Antigen (Rapid) - Final Radiology Impression Chest X-Ray 08/01/21 03:18 IMPRESSION: Multifocal centrally located patchy groundglass opacities consider pulmonary edema and/or diffuse pneumonia. Electronically Signed: Clarissa Montes MD at 3:52 EDT Tel , Service support , Chest CTA 08/01/21 04:12 IMPRESSION: Multifocal pneumonia pattern which is most likely consistent with Covid pneumonia. NO pulmonary embolism. Partially visualized splenomegaly. Cardiomegaly coronary disease. Degenerative change of the shoulder joints and thoracic spine. Electronically Signed: Clarissa Montes MD at 5:18 EDT Tel , Service support , Charges/Coding Procedures Hospitalists Procedures: [id number] [facility] 1st Hr
[2021-08-01] MEDS: Potassium Chloride 10mEq/100mL 10 MEQ/100 ML IV.SOLN. 100 MEQ IV BOLUS ×3 (09:34→12:03)
[2021-08-01 09:37] LABS: Lactic Acid 1.3 mmol/L (0.4-1.9)
[2021-08-01] MEDS: Insulin Lispro 100 UNIT/ML INSULN.PEN SC ×2 (11:31→17:36)
[2021-08-01] MEDS: Ascorbic Acid 500 MG Tablet PO ×2 (11:32→17:36)
[2021-08-01] MEDS: Enoxaparin 30 MG/0.3 ML Syringe SC ×2 (11:33→22:05)
--- NOTE | 2021-08-01 11:40 | CASEMGMT ---
RN CM called for initial transition planning/care coordination assessment as patient is currently on continuous Bipap. RN CM introduced self and role at [facility]. willing to participate in assessment and is able to answer all questions appropriately. Care providers, pharmacy, and demographics verified. wishes for patient to discharge home, will monitor for HHC and home oxygen at discharge. states she has no further needs or concerns at this time. CM to follow for discharge planning needs that may arise. PCP: José Miguel Hassan Specialists: Chris Transition Coach Melinda Preferred Pharmacy: [facility] Insurance: [employer] Prescription Benefit: yes Living Will/HPOA: none LNOK: Living Arrangements: Patient live with in a 2 story home with bed and bath on first floor. Patient is independent and able to ambulate stairs. Transportation: self/ DME/HHC: denies DME at home. No previous HHC Patient had covid testing done at [facility] Disposition Plan: Patient to discharge home with family support and follow-up plans in place. Will monitor for need for HHC and home oxygen Beverly CREWS, RN, CM
[2021-08-01] MEDS: Famotidine 200 MG/20 ML MDV 20 MG in 0.9% Normal Saline (Pres. free 8 ML 300 MG IV ×2 (11:42→22:05)
[2021-08-01 12:55] LABS: Bedside Glucose 195 mg/dL (70-110)
--- NOTE | 2021-08-01 15:56 | CON.PCM.ID_ITS ---
Assessment & Plan Assessment/Plan (1) COVID-19: PLAN: Sx started 07/20/21. Unvaccinated. On dex. Not candidate for re mdesivir due to timing. Isolate for 20 days until 08/09. Encouraged to contact PCP for possible monoclonal Ab therapy. Reviewed EUA, will start baricitinib. Recommend vaccine once out of iso. Will follow, thank you (2) Respiratory failure: QUALIFIERS: Chronicity: acute Respiratory failure complication: hypoxia Qualified Code(s): J96.01 - Acute respiratory failure with hypoxia HPI Consult Data Date of Consult: 08/01/21 HPI Narrative HPI Narrative: PÉREZ TORRES, is a 71 M who presented with sx starting 07/20, c/o fever, cough, diarrhea. No vaccine. with symptoms, (+) for covid. Admitted on dex to icu, bipap. Feeling ok. Full ROS performed and neg except as noted above. [facility] Medical History CAD (coronary artery disease) Diabetes HLD (hyperlipidemia) Hypertension Myocardial infarct Home Medications allopurinol 300 mg PO DAILY 08/01/21 [History Last Taken Unknown] allopurinol 300 mg PO DAILY 08/01/21 [History Last Taken Unknown] amlodipine 5 mg PO DAILY 08/01/21 [History Last Taken Unknown] amlodipine 5 mg PO DAILY 08/01/21 [History Last Taken Unknown] aspirin [Baby Aspirin] 81 mg PO DAILY 08/01/21 [History Last Taken Unknown] atorvastatin 40 mg PO DAILY 08/01/21 [History Last Taken Unknown] atorvastatin 40 mg PO QHS 08/01/21 [History Last Taken Unknown] carvedilol 25 mg PO BID 08/01/21 [History Last Taken Unknown] chlorthalidone 25 mg PO DAILY 08/01/21 [History Last Taken Unknown] chlorthalidone 25 mg PO DAILY 08/01/21 [History Last Taken Unknown] clopidogrel 75 mg PO DAILY 08/01/21 [History Last Taken Unknown] clopidogrel 75 mg PO DAILY 08/01/21 [History Last Taken Unknown] furosemide 20 mg PO DAILY 08/01/21 [History Last Taken Unknown] furosemide 20 mg PO DAILY 08/01/21 [History Last Taken Unknown] lisinopril 40 mg PO DAILY 08/01/21 [History Last Taken Unknown] lisinopril 40 mg PO DAILY 08/01/21 [History Last Taken Unknown] metformin 1,000 mg PO DAILY 08/01/21 [History Last Taken Unknown] metformin 500 mg PO DAILY 08/01/21 [History Last Taken Unknown] metformin 500 mg PO UD 08/01/21 [History Last Taken Unknown] naproxen 250 mg PO BID 08/01/21 [History Last Taken Unknown] Allergy/AdvReac Type Severity Reaction Status Date / Time ticagrelor [From Brilinta] Allergy Shortness Verified 08/01/21 03:19 of breath Family History (Updated 08/01/21 @ 05:[address] Tara Melgar MD) Mother Hypertension Family History other Surgical History (Updated 08/01/21 @ 05:[address] Tara Melgar MD) History of coronary artery stent placement S/P appendectomy Social History (Updated 08/01/21 @ 05:[address] Tara Melgar MD) household members: spouse Smoking Status: Never smoker alcohol intake: current alcohol intake frequency: holidays/special occasions only substance use type: does not use Physical Exam Const alert and oriented x3 General Appearance: cooperative Exam Limitations: no limitations HEENT normocephalic and head/scalp atraumatic Eyes PERRL and EOMs intact bilaterally Neck supple and No nodes Resp Auscultation: diminished lung sounds Cardio regular rate and regular rhythm GI normal to inspection, nondistended, normoactive bowel sounds Extremity no clubbing, cyanosis or edema Skin no rashes or lesions noted Neuro CN's II-XII intact bilaterally Lab / Micro Data Result Diagrams: 08/01/21 03:25 08/01/21 03:25 Labs: Laboratory Results - last 24 hr 08/01/21 03:25: D-Dimer Quant (PE/DVT) 2.34 H* 08/01/21 03:25: Procalcitonin 0.09 08/01/21 03:25: WBC 7.6, RBC 4.49 L, Hgb 14.1, Hct 42.3, MCV 94.2 H, MCH 31.4, MCHC 33.3, RDW Std Deviation 49.0 H, RDW Coeff of Myriam 14.3, Plt Count 219, MPV 10.6, Immature Gran % (Auto) 2.100 H, Neut % (Auto) 81.2 H, Lymph % (Auto) 13.3 L, [place] % (Auto) 2.6, Eos % (Auto) 0.3, Baso % (Auto) 0.5, Absolute Neuts (auto) 6.2, Absolute Lymphs (auto) 1.01, Nucleated RBC % 0 08/01/21 03:25: Sodium 137, Potassium 3.4 L, Chloride 102, Carbon Dioxide 27.0, Anion Gap 8, BUN 35 H, Creatinine 0.82, Estim Creat Clear Calc 88.00, Est GFR (MDRD) Af Amer 120, Est GFR (MDRD) Non-Af 99, BUN/Creatinine Ratio 42.9 H, Glucose 163 H, Calcium 8.1 L, Total Bilirubin 1.00, AST 79 H, ALT 58, Alkaline Phosphatase 77, Troponin I High Sens 24, Total Protein 7.0, Albumin 2.5 L, Globulin 4.5 H, Albumin/Globulin Ratio 0.6 L 08/01/21 03:25: Lactic Acid 2.3 H* 08/01/21 03:25: Magnesium 2.1, Ferritin 1514 H, Lactate Dehydrogenase 609 H, C- React Prot Ext Range 84.90 H 08/01/21 03:25: B-Natriuretic Peptide 51.9 08/01/21 08:55: Lactic Acid 1.3 08/01/21 11:24: POC Glucose 195 H Micro: Microbiology 08/01/21 07:45 Mucosa - Nose Respiratory Panel (PCR) - Final 08/01/21 03:20 Nasal Secretion SARS-CoV-2 Antigen (Rapid) - Final Radiology Impression Chest X-Ray 08/01/21 03:18 IMPRESSION: Multifocal centrally located patchy groundglass opacities consider pulmonary edema and/or diffuse pneumonia. Electronically Signed: Clarissa Montes MD at 3:52 EDT Tel , Service support , Chest CTA 08/01/21 04:12 IMPRESSION: Multifocal pneumonia pattern which is most likely consistent with Covid pneumonia. NO pulmonary embolism. Partially visualized splenomegaly. Cardiomegaly coronary disease. Degenerative change of the shoulder joints and thoracic spine. Electronically Signed: Clarissa Montes MD at 5:18 EDT Tel , Service support ,
[2021-08-01 18:10] LABS: Bedside Glucose 173 mg/dL (70-110)
[2021-08-01] MEDS: MELATONIN 3 MG TABLET PO (22:06)
[2021-08-02] VITALS (35 sets, daily range): BP systolic 113–144; BP diastolic 60–105; PULSE 43–92; RESP 12–30; TEMP 36.2–36.6; O2SAT 89–99
[2021-08-02] LABS: Bedside Glucose 148 mg/dL (70-110)
[2021-08-02 06:25] LABS: Absolute Lymphocyte Count 1.18 X10^3/uL (0.83-4.51); Absolute Neutrophil Count 6.9 X10^3/uL (2.0-7.7); Basophil# 0.03 X10^3/uL; Basophil% 0.3 % (0-1); Hematocrit 37.9 % (40-54); Hemoglobin 12.8 g/dL (13.0-16.5); Lymphocyte # 1.18 X10^3/ul (0.83-4.51); Lymphocyte % 13.6 % (19-41); Mean Corp Hgb Conc 33.8 g/dL (32-36); Mean Corpuscular Volume 94.8 fL (80-94); Mean Platelet Vol. 10.5 fl (6.2-12.0); Monocyte# 0.37 X10^3/uL; Monocyte% 4.3 % (0-10); NRBC Flagged by Analyzer 0 % (0-5); Neutrophil # 6.92 X10^3/uL (2.7-7.7); Neutrophil % 79.5 % (47-70); Platelet Count 245 K/mm3 (150-450); RBC Distribution Width CV 14.5 % (11.6-14.6); RBC Distribution Width SD 51.1 fl (35.1-43.9); White Blood Count 8.7 K/mm3 (4.4-11.0)
[2021-08-02 06:34] LABS: Anion Gap 4 (5-15); BUN 38 mg/dL (7-18); BUN/Creat Ratio 58.4 RATIO (10-20); Chloride 109 mmol/L (98-107); Creatinine, Serum 0.65 mg/dL (0.70-1.30); EST Glomerular Filtration Rate 128 mL/min (>60); Est Glom Filt Rate - Afr Amer 155 mL/min (>60); Estimated Creatinine Clearance 72.16 ml/min; Glucose 145 mg/dL (74-106); Potassium 3.5 mmol/L (3.5-5.1); Sodium Level 140 mmol/L (136-145)
--- NOTE | 2021-08-02 07:02 | PN.CC_ITS ---
Assessment & Plan Assessment/Plan (1) COVID-19: (2) Respiratory failure: QUALIFIERS: Chronicity: acute Respiratory failure complication: hypoxia Qualified Code(s): J96.01 - Acute respiratory failure with hypoxia PLAN: RECOMMENDATIONS: 1. Continue noninvasive positive pressure ventilatory support. 2. Attempt to wean to Airvo heated high flow or high flow nasal cannula for saturations greater than 90%. 3. Continue Decadron to complete 10-day treatment course. 4. Continue baricitinib per ID recommendations. 5. Encourage incentive spirometer use and mobilize patient as tolerated. IMPRESSIONS: 1. Acute hypoxemic respiratory failure secondary to COVID-19 pneumonia The patient presented to the hospital with progressive Covid symptoms, which initially began on July 20. The patient is currently outside of the window to administer remdesivir. Therefore, he will be continued on Decadron to complete a 10-day treatment course. CTA showed no evidence for PE. Therefore, the patient will be continued on twice daily Lovenox. Infectious diseases has placed the patient on baricitinib, which will be continued to complete a treatment course. For now, the patient will be continued on noninvasive positive pressure ventilatory support, with a goal to wean FiO2 to maintain oxygen saturations at or above 90%. Periodic use of diuretics can be entertained to maintain euvolemic state. Will attempt to wean the patient Airvo heated high flow or conventional high flow nasal cannula oxygen today. 2. Obesity/diabetes mellitus/history of coronary artery disease status post PCI/hypertension/hyperlipidemia Complicates care, management, recovery and prognosis. Continue home medications as indicated. TIME: 34 minutes of critical care time, independent of procedures, was spent addressing the patient's acute hypoxemic respiratory failure secondary to COVID- 19 pneumonia, review of all data and collaboration with the care team. ([id number] [phone]) Subjective Subjective The patient was seen and examined at the bedside this morning. Events from the last 24 hours have been reviewed. The patient is currently afebrile, hemodynamically stable and maintaining appropriate oxygen saturations on AVAPS with an FiO2 requirement of 55%. The patient has remained bradycardic overnight. The patient is currently being maintained on Decadron, Lovenox and baricitinib. He does report the presence of anxiety this morning. Objective Data Objective Data The patient's most recent lab work, culture data and imaging studies have all been personally reviewed. Strep and urine Legionella antigens were negative. Respiratory viral panel was negative. Blood cultures have demonstrated no growth to date. Vital Signs: Vital Signs Temp Pulse Resp BP Pulse Ox 97.9 F 47 L 21 H 141/71 H 93 08/02/21 04:00 08/02/21 07:00 08/02/21 07:00 08/02/21 07:00 08/02/21 07:00 Oxygen Flow Rate (L/min) 10 Oxygen Delivery Method Bi-pap Weight: 117.6 kg Body Mass Index (BMI) 36.0 Intake & Output: Intake and Output for Last 24 Hours 07/31/21 08/01/21 08/02/21 23:59 23:59 23:59 Intake Total 735 / 735 50 / 50 Output Total 800 / 800 Balance -65 / -65 50 / 50 Lab / Micro Data Attestation: I reviewed the patient's lab results. Result Diagrams: 08/02/21 05:30 08/02/21 05:30 Labs: Laboratory Results - last 24 hr 08/01/21 08:55: Lactic Acid 1.3 08/01/21 11:24: POC Glucose 195 H 08/01/21 17:35: POC Glucose 173 H 08/01/21 23:51: POC Glucose 148 H 08/02/21 05:30: WBC 8.7, RBC 4.00 L, Hgb 12.8 L, Hct 37.9 L, MCV 94.8 H, MCH 32.0, MCHC 33.8, RDW Std Deviation 51.1 H, RDW Coeff of Myriam 14.5, Plt Count 245, MPV 10.5, Immature Gran % (Auto) 2.300 H, Neut % (Auto) 79.5 H, Lymph % (Auto) 13.6 L, [place] % (Auto) 4.3, Eos % (Auto) 0.0, Baso % (Auto) 0.3, Absolute Neuts (auto) 6.9, Absolute Lymphs (auto) 1.18, Nucleated RBC % 0 08/02/21 05:30: Sodium 140, Potassium 3.5, Chloride 109 H, Carbon Dioxide 27.0, Anion Gap 4 L, BUN 38 H, Creatinine 0.65 L, Estim Creat Clear Calc 72.16, Est GFR (MDRD) Af Amer 155, Est GFR (MDRD) Non-Af 128, BUN/Creatinine Ratio 58.4 H, Glucose 145 H, Calcium 8.0 L Micro: Microbiology 08/01/21 15:20 Urine, Clean Catch Legionella Antigen - Final 08/01/21 15:20 Urine, Clean Catch Streptococcus pneumoniae Antigen (M - Final 08/01/21 07:45 Mucosa - Nose Respiratory Panel (PCR) - Final 08/01/21 03:20 Nasal Secretion SARS-CoV-2 Antigen (Rapid) - Final Physical Exam Const alert General Appearance: cooperative, ill appearing and on BiPAP Nutritional Appearance: obese HEENT normocephalic and head/scalp atraumatic Eyes PERRL and EOMs intact bilaterally Neck supple General: trachea midline Chest inspection of chest normal Resp Effort and Inspection: tachypneic Auscultation: diminished lung sounds; Negative for rales, rhonchi or wheezes Cardio regular rate and regular rhythm GI normal to inspection, nondistended, normoactive bowel sounds Extremity no clubbing, cyanosis or edema Skin no rashes or lesions noted Neuro CN's II-XII intact bilaterally, moves all extremities and no focal motor deficits Psych Mood & Affect: anxious Charges/Coding Procedures Hospitalists Procedures: 11751 Critial Care 1st Hr
[2021-08-02] MEDS: Famotidine 200 MG/20 ML MDV 20 MG in 0.9% Normal Saline (Pres. free 8 ML 300 MG IV ×2 (10:27→21:09)
[2021-08-02] MEDS: Ascorbic Acid 500 MG Tablet PO ×2 (10:27→17:43)
[2021-08-02] MEDS: Enoxaparin 30 MG/0.3 ML Syringe SC ×2 (10:28→21:08)
[2021-08-02] MEDS: dexAMETHasone 4 MG/ML Vial 6 MG IV (10:28)
[2021-08-02] MEDS: LORazepam 2 MG/ML Syringe 0.5 MG IV (11:00)
[2021-08-02 12:36] LABS: Bedside Glucose 157 mg/dL (70-110)
[2021-08-02] MEDS: Insulin Lispro 100 UNIT/ML INSULN.PEN SC ×3 (12:43→21:18)
--- NOTE | 2021-08-02 15:06 | CASEMGMT ---
RN KAYKAY NOTE: Per JANI Nettles CM, pt's had no preference of DME co, as long as they are in-network w/pt's insurance. Call placed to [facility]. She states they are in-network w/[employer]. Green sheet placed on chart w/instructions for Home O2, if pt qualifies. Joel CREWS RN CM
[2021-08-02 18:36] LABS: Bedside Glucose 220 mg/dL (70-110)
--- NOTE | 2021-08-02 19:29 | PN.HOSP_ITS ---
Subjective Subjective Patient was seen and examined earlier today, earlier this morning he was on BiPAP, later this afternoon he was transitioned to nasal cannula at 10 L/min. Patient voices no complaints of shortness of breath at rest to this examiner. Objective Data Objective Data Vital Signs: Vital Signs Temp Pulse Resp BP Pulse Ox 97.2 F L 55 L 19 H 138/97 H 94 08/02/21 16:00 08/02/21 18:00 08/02/21 18:00 08/02/21 18:00 08/02/21 18:00 Oxygen Flow Rate (L/min) 10 Oxygen Delivery Method Nasal Cannula Weight: 117.6 kg Body Mass Index (BMI) 36.0 Intake & Output: Intake and Output for Last 24 Hours 07/31/21 08/01/21 08/02/21 23:59 23:59 23:59 Intake Total 735 / 735 60 / 60 Output Total 800 / 800 1300 / 1300 Balance -65 / -65 -1240 / -1240 Lab / Micro Data Result Diagrams: 08/02/21 05:30 08/02/21 05:30 Labs: Laboratory Results - last 24 hr 08/01/21 23:51: POC Glucose 148 H 08/02/21 05:30: WBC 8.7, RBC 4.00 L, Hgb 12.8 L, Hct 37.9 L, MCV 94.8 H, MCH 32.0, MCHC 33.8, RDW Std Deviation 51.1 H, RDW Coeff of Myriam 14.5, Plt Count 245, MPV 10.5, Immature Gran % (Auto) 2.300 H, Neut % (Auto) 79.5 H, Lymph % (Auto) 13.6 L, [place] % (Auto) 4.3, Eos % (Auto) 0.0, Baso % (Auto) 0.3, Absolute Neuts (auto) 6.9, Absolute Lymphs (auto) 1.18, Nucleated RBC % 0 08/02/21 05:30: Sodium 140, Potassium 3.5, Chloride 109 H, Carbon Dioxide 27.0, Anion Gap 4 L, BUN 38 H, Creatinine 0.65 L, Estim Creat Clear Calc 72.16, Est GFR (MDRD) Af Amer 155, Est GFR (MDRD) Non-Af 128, BUN/Creatinine Ratio 58.4 H, Glucose 145 H, Calcium 8.0 L 08/02/21 12:27: POC Glucose 157 H 08/02/21 17:35: POC Glucose 220 H Micro: Microbiology 08/01/21 15:20 Urine, Clean Catch Legionella Antigen - Final 08/01/21 15:20 Urine, Clean Catch Streptococcus pneumoniae Antigen (M - Final 08/01/21 07:45 Mucosa - Nose Respiratory Panel (PCR) - Final 08/01/21 03:20 Nasal Secretion SARS-CoV-2 Antigen (Rapid) - Final Physical Exam Const alert, oriented x3, no apparent distress and healthy appearing General Appearance: cooperative, well kempt and well developed Orientation / Consciousness: awake, oriented to person, oriented to place and oriented to time HEENT normocephalic, head/scalp atraumatic and moist oral mucous membranes Head and Scalp: normocephalic Eyes PERRL, EOMs intact bilaterally and conjunctivae normal Neck nuchal rigidity, supple, no JVD, thyroid normal and no carotid bruits General: trachea midline Resp normal respiratory effort and clear to auscultation bilaterally Auscultation: Negative for rales, rhonchi or wheezes Cardio regular rate, regular rhythm, S1 normal heart sound, S2 normal heart sound, no murmurs, no rub and no gallops GI normal to inspection, nondistended, normoactive bowel sounds, soft to palpation, non-tender and non-distended Extremity no clubbing, cyanosis or edema Skin no rashes or lesions noted General Skin Exam: no breakdown Neuro oriented x3, CN's II-XII intact bilaterally, no focal motor deficits and no sensory deficits noted Sensorium / Orientation: awake and alert Speech: speech normal Psych thought process normal and affect normal Assessment & Plan Assessment/Plan (1) COVID-19: PLAN: 1. COVID-19 pneumonia-continue present treatment #2 acute hypoxic respiratory failure secondary to #1-pulmonary medicine is participating in his care #3 essential hypertension #4 hyperlipidemia #5 coronary artery disease #6 type 2 diabetes-blood sugars are being monitored Charges/Coding Visit Charges Inpatient E&M: 95647 Subs Hosp L2
[2021-08-02] MEDS: guaiFENesin 10 ML UDC (200MG/10ML) PO (21:08)
[2021-08-02] MEDS: Acetaminophen 325 MG Tablet 650 MG PO (21:09)
[2021-08-02] MEDS: LORazepam 0.5 MG Tablet PO (21:09)
[2021-08-02] MEDS: MELATONIN 3 MG TABLET PO (21:10)
[2021-08-02] MEDS: 0.9% Saline Lock 10 ML Syringe IV (21:13)
[2021-08-03] VITALS (34 sets, daily range): BP systolic 108–166; BP diastolic 61–104; PULSE 40–61; RESP 12–30; TEMP 36–36.6; O2SAT 82–100
[2021-08-03 01:06] LABS: Bedside Glucose 193 mg/dL (70-110)
[2021-08-03] MEDS: LORazepam 0.5 MG Tablet PO ×2 (01:27→21:16)
[2021-08-03 05:12] LABS: Absolute Lymphocyte Count 1.13 X10^3/uL (0.83-4.51); Basophil# 0.06 X10^3/uL; Basophil% 0.7 % (0-1); Eosinophil# 0.31 X10^3/uL; Eosinophils% 3.8 % (0-5); Hematocrit 40.6 % (40-54); Hemoglobin 13.4 g/dL (13.0-16.5); Lymphocyte # 1.13 X10^3/ul (0.83-4.51); Lymphocyte % 13.9 % (19-41); Mean Corpuscular Hgb 31.9 pg (27.0-32.0); Mean Corpuscular Volume 96.7 fL (80-94); Mean Platelet Vol. 9.7 fl (6.2-12.0); Monocyte% 4.9 % (0-10); NRBC Flagged by Analyzer 0 % (0-5); Neutrophil # 6.03 X10^3/uL (2.7-7.7); Neutrophil % 74.2 % (47-70); Platelet Count 300 K/mm3 (150-450); RBC Distribution Width CV 14.5 % (11.6-14.6); White Blood Count 8.1 K/mm3 (4.4-11.0)
[2021-08-03 05:27] LABS: Anion Gap 6 (5-15); BUN 33 mg/dL (7-18); BUN/Creat Ratio 42.6 RATIO (10-20); Calcium,Total 8.5 mg/dL (8.5-10.1); Chloride 108 mmol/L (98-107); Creatinine, Serum 0.77 mg/dL (0.70-1.30); EST Glomerular Filtration Rate 105 mL/min (>60); Est Glom Filt Rate - Afr Amer 127 mL/min (>60); Estimated Creatinine Clearance 72.16 ml/min; Glucose 159 mg/dL (74-106); Potassium 3.8 mmol/L (3.5-5.1); Sodium Level 141 mmol/L (136-145)
[2021-08-03] MEDS: Insulin Lispro 100 UNIT/ML INSULN.PEN SC ×4 (06:46→21:18)
--- NOTE | 2021-08-03 07:57 | PN.CC_ITS ---
Assessment & Plan Assessment/Plan (1) COVID-19: (2) Respiratory failure: QUALIFIERS: Chronicity: acute Respiratory failure complication: hypoxia Qualified Code(s): J96.01 - Acute respiratory failure with hypoxia PLAN: RECOMMENDATIONS: 1. Continue noninvasive positive pressure ventilatory support. 2. Attempt to wean to Airvo heated high flow or high flow nasal cannula for saturations greater than 90%. 3. Continue Decadron to complete 10-day treatment course. 4. Continue baricitinib per ID recommendations. 5. Encourage incentive spirometer use and mobilize patient as tolerated. IMPRESSIONS: 1. Acute hypoxemic respiratory failure secondary to COVID-19 pneumonia The patient presented to the hospital with progressive Covid symptoms, which initially began on July 20. The patient is currently outside of the window to administer remdesivir. Therefore, he will be continued on Decadron to complete a 10-day treatment course. CTA showed no evidence for PE. Therefore, the patient will be continued on twice daily Lovenox. Infectious diseases has placed the patient on baricitinib, which will be continued to complete a treatment course. For now, the patient will be continued on noninvasive positive pressure ventilatory support, with a goal to wean FiO2 to maintain oxygen saturations at or above 90%. Periodic use of diuretics can be entertained to maintain euvolemic state. Attempt to wean the patient to Airvo heated high flow or conventional high flow nasal cannula oxygen again today. 2. Obesity/diabetes mellitus/history of coronary artery disease status post PCI/hypertension/hyperlipidemia Complicates care, management, recovery and prognosis. Continue home medications as indicated. This note was generated with [employer] dictation software. It may contain incorrect words, spelling, and punctuation that were not noted in checking the note before signing. Subjective Subjective The patient was seen and examined at the bedside this morning. Events from the last 24 hours have been reviewed. Yesterday, the patient was able to be weaned to nasal cannula at 10 L/min. He was placed back on BiPAP for overnight support. The patient remains afebrile and hemodynamically stable. He continues to be bradycardic. He is currently documented to be overall net -1.6 L for the hospital admission. The patient remains on Decadron, Lovenox and baricitinib. Objective Data Objective Data The patient's most recent lab work, culture data and imaging studies have all been personally reviewed. Strep and urine Legionella antigens were negative. Respiratory viral panel was negative. Blood cultures have demonstrated no growth to date. Vital Signs: Vital Signs Temp Pulse Resp BP Pulse Ox 97.3 F L 41 L 25 H 130/66 H 97 08/03/21 04:00 08/03/21 07:15 08/03/21 06:00 08/03/21 06:00 08/03/21 06:00 Oxygen Flow Rate (L/min) 10 Oxygen Delivery Method Bi-pap Weight: 118.5 kg Body Mass Index (BMI) 36.0 Intake & Output: Intake and Output for Last 24 Hours 08/01/21 08/02/21 08/03/21 23:59 23:59 23:59 Intake Total 735 / 735 70 / 270 200 / 200 Output Total 800 / 800 1300 / 1825 525 / 525 Balance -65 / -65 -1230 / -1555 -325 / -325 Lab / Micro Data Attestation: I reviewed the patient's lab results. Result Diagrams: 08/03/21 04:55 08/03/21 04:55 Labs: Laboratory Results - last 24 hr 08/02/21 12:27: POC Glucose 157 H 08/02/21 17:35: POC Glucose 220 H 08/02/21 21:18: POC Glucose 193 H 08/03/21 04:55: WBC 8.1, RBC 4.20 L, Hgb 13.4, Hct 40.6, MCV 96.7 H, MCH 31.9, MCHC 33.0, RDW Std Deviation 51.0 H, RDW Coeff of Myriam 14.5, Plt Count 300, MPV 9.7, Immature Gran % (Auto) 2.500 H, Neut % (Auto) 74.2 H, Lymph % (Auto) 13.9 L , [place] % (Auto) 4.9, Eos % (Auto) 3.8, Baso % (Auto) 0.7, Absolute Neuts (auto) 6.0, Absolute Lymphs (auto) 1.13, Nucleated RBC % 0 08/03/21 04:55: Sodium 141, Potassium 3.8, Chloride 108 H, Carbon Dioxide 27.0, Anion Gap 6, BUN 33 H, Creatinine 0.77, Estim Creat Clear Calc 72.16, Est GFR (MDRD) Af Amer 127, Est GFR (MDRD) Non-Af 105, BUN/Creatinine Ratio 42.6 H, Glucose 159 H, Calcium 8.5 Micro: Microbiology 08/01/21 03:31 Blood Culture (Wb) - Anticubital Right Blood Culture - Preliminary No growth in 48 hours. 08/01/21 03:25 Blood Culture (Wb) - Anticubital Left Blood Culture - Preliminary No growth in 48 hours. 08/01/21 15:20 Urine, Clean Catch Legionella Antigen - Final 08/01/21 15:20 Urine, Clean Catch Streptococcus pneumoniae Antigen (M - Final 08/01/21 07:45 Mucosa - Nose Respiratory Panel (PCR) - Final 08/01/21 03:20 Nasal Secretion SARS-CoV-2 Antigen (Rapid) - Final Physical Exam Const alert General Appearance: cooperative, ill appearing and on BiPAP Nutritional Appearance: obese HEENT normocephalic and head/scalp atraumatic Eyes PERRL and EOMs intact bilaterally Neck supple General: trachea midline Chest inspection of chest normal Resp Effort and Inspection: tachypneic Auscultation: diminished lung sounds; Negative for rales, rhonchi or wheezes Cardio regular rate and regular rhythm GI normal to inspection, nondistended, normoactive bowel sounds Extremity no clubbing, cyanosis or edema Skin no rashes or lesions noted Neuro CN's II-XII intact bilaterally, moves all extremities and no focal motor deficits Psych Mood & Affect: anxious Charges/Coding Visit Charges Inpatient E&M: 43745 Subs Hosp L3
[2021-08-03] MEDS: Ascorbic Acid 500 MG Tablet PO ×2 (08:48→17:21)
[2021-08-03] MEDS: dexAMETHasone 4 MG/ML Vial 6 MG IV (08:50)
[2021-08-03] MEDS: Famotidine 200 MG/20 ML MDV 20 MG in 0.9% Normal Saline (Pres. free 8 ML 300 MG IV ×2 (08:50→21:17)
[2021-08-03] MEDS: Enoxaparin 30 MG/0.3 ML Syringe SC ×2 (08:50→21:40)
[2021-08-03 14:16] LABS: Bedside Glucose 176 mg/dL (70-110)
--- NOTE | 2021-08-03 15:25 | PN.HOSP_ITS ---
Subjective Subjective Patient was seen and examined in ICU today, he remains on BiPAP, he does not appear to be in any respiratory distress at this time. Objective Data Objective Data Vital Signs: Vital Signs Temp Pulse Resp BP Pulse Ox 97.1 F L 52 L 25 H 160/79 H 93 08/03/21 12:00 08/03/21 14:47 08/03/21 14:47 08/03/21 12:00 08/03/21 14:47 Oxygen Flow Rate (L/min) 15 Oxygen Delivery Method Bi-pap Weight: 118.5 kg Body Mass Index (BMI) 36.0 Intake & Output: Intake and Output for Last 24 Hours 08/01/21 08/02/21 08/03/21 23:59 23:59 23:59 Intake Total 735 / 735 70 / 270 210 / 210 Output Total 800 / 800 1300 / 1825 1225 / 1225 Balance -65 / -65 -1230 / -1555 -1015 / -1015 Lab / Micro Data Result Diagrams: 08/03/21 04:55 08/03/21 04:55 Labs: Laboratory Results - last 24 hr 08/02/21 17:35: POC Glucose 220 H 08/02/21 21:18: POC Glucose 193 H 08/03/21 04:55: WBC 8.1, RBC 4.20 L, Hgb 13.4, Hct 40.6, MCV 96.7 H, MCH 31.9, MCHC 33.0, RDW Std Deviation 51.0 H, RDW Coeff of Myriam 14.5, Plt Count 300, MPV 9.7, Immature Gran % (Auto) 2.500 H, Neut % (Auto) 74.2 H, Lymph % (Auto) 13.9 L , [place] % (Auto) 4.9, Eos % (Auto) 3.8, Baso % (Auto) 0.7, Absolute Neuts (auto) 6.0, Absolute Lymphs (auto) 1.13, Nucleated RBC % 0 08/03/21 04:55: Sodium 141, Potassium 3.8, Chloride 108 H, Carbon Dioxide 27.0, Anion Gap 6, BUN 33 H, Creatinine 0.77, Estim Creat Clear Calc 72.16, Est GFR (MDRD) Af Amer 127, Est GFR (MDRD) Non-Af 105, BUN/Creatinine Ratio 42.6 H, Glucose 159 H, Calcium 8.5 08/03/21 12:41: POC Glucose 176 H Micro: Microbiology 08/01/21 03:31 Blood Culture (Wb) - Anticubital Right Blood Culture - Preliminary No growth in 48 hours. 08/01/21 03:25 Blood Culture (Wb) - Anticubital Left Blood Culture - Preliminary No growth in 48 hours. 08/01/21 15:20 Urine, Clean Catch Legionella Antigen - Final 08/01/21 15:20 Urine, Clean Catch Streptococcus pneumoniae Antigen (M - Final 08/01/21 07:45 Mucosa - Nose Respiratory Panel (PCR) - Final 08/01/21 03:20 Nasal Secretion SARS-CoV-2 Antigen (Rapid) - Final Physical Exam Const alert, oriented x3, no apparent distress and healthy appearing General Appearance: cooperative, well kempt and well developed Orientation / Consciousness: awake, oriented to person, oriented to place and oriented to time HEENT normocephalic and head/scalp atraumatic Head and Scalp: normocephalic Eyes PERRL, EOMs intact bilaterally and conjunctivae normal Neck nuchal rigidity, supple, no JVD, thyroid normal and no carotid bruits General: trachea midline Resp normal respiratory effort, no retractions, no use of accessory muscles and clear to auscultation bilaterally Auscultation: Negative for rales, rhonchi or wheezes Cardio regular rate, regular rhythm, S1 normal heart sound, S2 normal heart sound, no murmurs, no rub and no gallops GI normal to inspection, nondistended, normoactive bowel sounds, soft to palpation, non-tender and non-distended Extremity no clubbing, cyanosis or edema Skin no rashes or lesions noted General Skin Exam: no breakdown Neuro oriented x3, CN's II-XII intact bilaterally, no focal motor deficits and no sensory deficits noted Sensorium / Orientation: awake and alert Speech: speech normal Psych thought process normal and affect normal Assessment & Plan Assessment/Plan (1) Pneumonia due to COVID-19 virus: (2) COVID-19: PLAN: 1. COVID-19 pneumonia-continue present treatment, he remains on dex amethasone and baricitinib. Patient was not a candidate for remdesivir due to timing #2 acute hypoxic respiratory failure secondary to #1-pulmonary medicine is participating in his care #3 essential hypertension #4 hyperlipidemia #5 coronary artery disease #6 type 2 diabetes-blood sugars are being monitored Charges/Coding Visit Charges Inpatient E&M: 09632 Subs Hosp L2
[2021-08-03 18:31] LABS: Bedside Glucose 204 mg/dL (70-110)
[2021-08-03] MEDS: MELATONIN 3 MG TABLET PO (21:16)
[2021-08-03] MEDS: Acetaminophen 325 MG Tablet 650 MG PO (21:17)
[2021-08-04] VITALS (32 sets, daily range): BP systolic 107–169; BP diastolic 55–100; PULSE 41–67; RESP 12–33; TEMP 35.9–36.2; O2SAT 89–98
[2021-08-04 06:15] LABS: Bedside Glucose 191 mg/dL (70-110)
[2021-08-04 06:48] LABS: Absolute Lymphocyte Count 1.05 X10^3/uL (0.83-4.51); Absolute Neutrophil Count 7.4 X10^3/uL (2.0-7.7); Basophil# 0.06 X10^3/uL; Basophil% 0.7 % (0-1); Eosinophil# 0.01 X10^3/uL; Eosinophils% 0.1 % (0-5); Hematocrit 43.2 % (40-54); Hemoglobin 14.2 g/dL (13.0-16.5); Lymphocyte # 1.05 X10^3/ul (0.83-4.51); Lymphocyte % 11.6 % (19-41); Mean Corp Hgb Conc 32.9 g/dL (32-36); Mean Corpuscular Hgb 31.2 pg (27.0-32.0); Mean Corpuscular Volume 94.9 fL (80-94); Mean Platelet Vol. 9.8 fl (6.2-12.0); Monocyte# 0.28 X10^3/uL; Monocyte% 3.1 % (0-10); NRBC Flagged by Analyzer 0 % (0-5); Neutrophil % 81.3 % (47-70); Platelet Count 366 K/mm3 (150-450); RBC Distribution Width CV 14.2 % (11.6-14.6); RBC Distribution Width SD 49.4 fl (35.1-43.9); Red Blood Count 4.55 M/mm3 (4.6-6.2); White Blood Count 9.1 K/mm3 (4.4-11.0)
[2021-08-04 07:02] LABS: Anion Gap 8 (5-15); BUN 31 mg/dL (7-18); BUN/Creat Ratio 48.4 RATIO (10-20); Calcium,Total 8.7 mg/dL (8.5-10.1); Chloride 106 mmol/L (98-107); Creatinine, Serum 0.64 mg/dL (0.70-1.30); EST Glomerular Filtration Rate 131 mL/min (>60); Est Glom Filt Rate - Afr Amer 158 mL/min (>60); Estimated Creatinine Clearance 72.16 ml/min; Glucose 147 mg/dL (74-106); Potassium 3.6 mmol/L (3.5-5.1); Sodium Level 141 mmol/L (136-145)
--- NOTE | 2021-08-04 07:09 | PN.CC_ITS ---
Assessment & Plan Assessment/Plan (1) COVID-19: (2) Respiratory failure: QUALIFIERS: Chronicity: acute Respiratory failure complication: hypoxia Qualified Code(s): J96.01 - Acute respiratory failure with hypoxia PLAN: RECOMMENDATIONS: 1. Continue noninvasive positive pressure ventilatory support. 2. Wean to Airvo heated high flow or high flow nasal cannula for saturations greater than 90%. 3. Continue Decadron to complete 10-day treatment course. 4. Continue baricitinib per ID recommendations. 5. Encourage incentive spirometer use and mobilize patient as tolerated. IMPRESSIONS: 1. Acute hypoxemic respiratory failure secondary to COVID-19 pneumonia The patient presented to the hospital with progressive Covid symptoms, which initially began on July 20. The patient is currently outside of the window to administer remdesivir. Therefore, he will be continued on Decadron to complete a 10-day treatment course. CTA showed no evidence for PE. Therefore, the patient will be continued on twice daily Lovenox. Infectious diseases has placed the patient on baricitinib, which will be continued to complete a treatment course. Continue supplemental oxygen to maintain saturations at or above 90%. Periodic use of diuretics can be entertained to maintain euvolemic state. Attempt to wean the patient to Airvo heated high flow or conventional high flow nasal cannula oxygen again today. 2. Obesity/diabetes mellitus/history of coronary artery disease status post PCI/hypertension/hyperlipidemia Complicates care, management, recovery and prognosis. Continue home medications as indicated. This note was generated with [employer] dictation software. It may contain incorrect words, spelling, and punctuation that were not noted in checking the note before signing. Subjective Subjective The patient was seen and examined at the bedside this morning. Events from the last 24 hours have been reviewed. The patient is afebrile and hemodynamically stable. Yesterday, the patient was maintained on high flow nasal cannula and placed back on BiPAP for overnight support with an FiO2 of 60%. The patient continues to have intermittent anxiety, which has responded favorably to the use of as needed Ativan. He is currently documented to be overall net -3 L for the hospital admission. The patient remains on Decadron, Lovenox and baricitinib. Objective Data Objective Data The patient's most recent lab work, culture data and imaging studies have all been personally reviewed. Strep and urine Legionella antigens were negative. Respiratory viral panel was negative. Blood cultures have demonstrated no growth to date. Vital Signs: Vital Signs Temp Pulse Resp BP Pulse Ox 97.1 F L 47 L 18 164/87 H 92 08/04/21 00:00 08/04/21 07:00 08/04/21 07:00 08/04/21 07:00 08/04/21 07:00 Oxygen Flow Rate (L/min) 15 Oxygen Delivery Method Bi-pap Weight: 112.1 kg Body Mass Index (BMI) 36.0 Intake & Output: Intake and Output for Last 24 Hours 08/02/21 08/03/21 08/04/21 23:59 23:59 23:59 Intake Total 70 / 270 220 / 220 0 / 0 Output Total 1300 / 1825 1925 / 1925 Balance -1230 / -1555 -1705 / -1705 0 / 0 Lab / Micro Data Attestation: I reviewed the patient's lab results. Result Diagrams: 08/04/21 06:30 08/04/21 06:30 Labs: Laboratory Results - last 24 hr 08/03/21 12:41: POC Glucose 176 H 08/03/21 17:19: POC Glucose 204 H 08/03/21 21:14: POC Glucose 191 H 08/04/21 06:30: WBC 9.1, RBC 4.55 L, Hgb 14.2, Hct 43.2, MCV 94.9 H, MCH 31.2, MCHC 32.9, RDW Std Deviation 49.4 H, RDW Coeff of Myriam 14.2, Plt Count 366, MPV 9.8, Immature Gran % (Auto) 3.200 H, Neut % (Auto) 81.3 H, Lymph % (Auto) 11.6 L , [place] % (Auto) 3.1, Eos % (Auto) 0.1, Baso % (Auto) 0.7, Absolute Neuts (auto) 7.4, Absolute Lymphs (auto) 1.05, Nucleated RBC % 0 08/04/21 06:30: Sodium 141, Potassium 3.6, Chloride 106, Carbon Dioxide 27.0, Anion Gap 8, BUN 31 H, Creatinine 0.64 L, Estim Creat Clear Calc 72.16, Est GFR (MDRD) Af Amer 158, Est GFR (MDRD) Non-Af 131, BUN/Creatinine Ratio 48.4 H, Glucose 147 H, Calcium 8.7 Micro: Microbiology 08/01/21 03:31 Blood Culture (Wb) - Anticubital Right Blood Culture - Preliminary No growth in 48 hours. 08/01/21 03:25 Blood Culture (Wb) - Anticubital Left Blood Culture - Preliminary No growth in 48 hours. 08/01/21 15:20 Urine, Clean Catch Legionella Antigen - Final 08/01/21 15:20 Urine, Clean Catch Streptococcus pneumoniae Antigen (M - Final 08/01/21 07:45 Mucosa - Nose Respiratory Panel (PCR) - Final 08/01/21 03:20 Nasal Secretion SARS-CoV-2 Antigen (Rapid) - Final Physical Exam Const alert General Appearance: cooperative and on BiPAP Nutritional Appearance: obese HEENT normocephalic and head/scalp atraumatic Eyes PERRL and EOMs intact bilaterally Neck supple General: trachea midline Chest inspection of chest normal Resp Effort and Inspection: tachypneic Auscultation: diminished lung sounds; Negative for rales, rhonchi or wheezes Cardio regular rhythm, S1 normal heart sound and S2 normal heart sound Rate: bradycardia GI normal to inspection, nondistended, normoactive bowel sounds Extremity no clubbing, cyanosis or edema Skin no rashes or lesions noted Neuro CN's II-XII intact bilaterally, moves all extremities and no focal motor deficits Psych Mood & Affect: anxious Charges/Coding Visit Charges Inpatient E&M: 33844 Subs Hosp L3
[2021-08-04 07:20] LABS: Bedside Glucose 146 mg/dL (70-110)
[2021-08-04] MEDS: LORazepam 0.5 MG Tablet PO ×3 (08:44→20:00)
[2021-08-04] MEDS: Ascorbic Acid 500 MG Tablet PO ×2 (08:44→17:02)
[2021-08-04] MEDS: Enoxaparin 30 MG/0.3 ML Syringe SC ×2 (10:19→19:57)
[2021-08-04] MEDS: dexAMETHasone 4 MG/ML Vial 6 MG IV (10:20)
[2021-08-04] MEDS: Famotidine 200 MG/20 ML MDV 20 MG in 0.9% Normal Saline (Pres. free 8 ML 300 MG IV ×2 (10:20→19:57)
[2021-08-04 14:31] LABS: Bedside Glucose 144 mg/dL (70-110)
[2021-08-04] MEDS: Insulin Lispro 100 UNIT/ML INSULN.PEN SC ×2 (17:02→19:58)
--- NOTE | 2021-08-04 17:05 | PN.HOSP_ITS ---
Subjective Subjective Patient was seen and examined today, he is currently on AVAPS at 50%, I briefly discussed his care with pulmonary medicine today. Objective Data Objective Data Vital Signs: Vital Signs Temp Pulse Resp BP Pulse Ox 97.0 F L 60 24 H 143/82 H 96 08/04/21 12:00 08/04/21 17:02 08/04/21 17:02 08/04/21 16:00 08/04/21 17:02 Oxygen Flow Rate (L/min) 15 Oxygen Delivery Method Mechanical Ventilator Weight: 112.1 kg Body Mass Index (BMI) 36.0 Intake & Output: Intake and Output for Last 24 Hours 08/02/21 08/03/21 08/04/21 23:59 23:59 23:59 Intake Total 70 / 270 220 / 220 10 / 10 Output Total 1300 / 1825 1925 / 1925 750 / 750 Balance -1230 / -1555 -1705 / -1705 -740 / -740 Lab / Micro Data Result Diagrams: 08/04/21 06:30 08/04/21 06:30 Labs: Laboratory Results - last 24 hr 08/03/21 17:19: POC Glucose 204 H 08/03/21 21:14: POC Glucose 191 H 08/04/21 06:22: POC Glucose 146 H 08/04/21 06:30: WBC 9.1, RBC 4.55 L, Hgb 14.2, Hct 43.2, MCV 94.9 H, MCH 31.2, MCHC 32.9, RDW Std Deviation 49.4 H, RDW Coeff of Myriam 14.2, Plt Count 366, MPV 9.8, Immature Gran % (Auto) 3.200 H, Neut % (Auto) 81.3 H, Lymph % (Auto) 11.6 L , [place] % (Auto) 3.1, Eos % (Auto) 0.1, Baso % (Auto) 0.7, Absolute Neuts (auto) 7.4, Absolute Lymphs (auto) 1.05, Nucleated RBC % 0 08/04/21 06:30: Sodium 141, Potassium 3.6, Chloride 106, Carbon Dioxide 27.0, Anion Gap 8, BUN 31 H, Creatinine 0.64 L, Estim Creat Clear Calc 72.16, Est GFR (MDRD) Af Amer 158, Est GFR (MDRD) Non-Af 131, BUN/Creatinine Ratio 48.4 H, Glucose 147 H, Calcium 8.7 08/04/21 12:24: POC Glucose 144 H Micro: Microbiology 08/01/21 03:31 Blood Culture (Wb) - Anticubital Right Blood Culture - Preliminary No growth in 48 hours. 08/01/21 03:25 Blood Culture (Wb) - Anticubital Left Blood Culture - Preliminary No growth in 48 hours. 08/01/21 15:20 Urine, Clean Catch Legionella Antigen - Final 08/01/21 15:20 Urine, Clean Catch Streptococcus pneumoniae Antigen (M - Final 08/01/21 07:45 Mucosa - Nose Respiratory Panel (PCR) - Final 08/01/21 03:20 Nasal Secretion SARS-CoV-2 Antigen (Rapid) - Final Physical Exam Const alert, oriented x3, no apparent distress and healthy appearing General Appearance: cooperative, well kempt and well developed Orientation / Consciousness: awake, oriented to person, oriented to place and oriented to time HEENT normocephalic, head/scalp atraumatic and moist oral mucous membranes Head and Scalp: normocephalic Eyes PERRL, EOMs intact bilaterally and conjunctivae normal Neck nuchal rigidity, supple, no JVD, thyroid normal and no carotid bruits General: trachea midline Resp normal respiratory effort, no retractions, no use of accessory muscles and clear to auscultation bilaterally Auscultation: Negative for rales, rhonchi or wheezes Cardio regular rate, regular rhythm, S1 normal heart sound, S2 normal heart sound, no murmurs, no rub and no gallops GI normal to inspection, nondistended, normoactive bowel sounds, soft to palpation, non-tender and non-distended Extremity no clubbing, cyanosis or edema Skin no rashes or lesions noted General Skin Exam: no breakdown Neuro oriented x3, CN's II-XII intact bilaterally, no focal motor deficits and no sensory deficits noted Sensorium / Orientation: awake and alert Speech: speech normal Psych thought process normal and affect normal Assessment & Plan Assessment/Plan (1) Pneumonia due to COVID-19 virus: (2) COVID-19: PLAN: 1. COVID-19 pneumonia-continue present treatment, he remains on dexamethasone and baricitinib. Patient was not a candidate for remdesivir due to timing #2 acute hypoxic respiratory failure secondary to #1-pulmonary medicine is participating in his care #3 essential hypertension #4 hyperlipidemia #5 coronary artery disease #6 type 2 diabetes-blood sugars are being monitored, they appear to be under fair control Charges/Coding Visit Charges Inpatient E&M: 14133 Subs Hosp L2
[2021-08-04 19:10] LABS: Bedside Glucose 233 mg/dL (70-110)
[2021-08-04] MEDS: MELATONIN 3 MG TABLET PO (19:56)
[2021-08-04] MEDS: Acetaminophen 325 MG Tablet 650 MG PO (19:59)
[2021-08-05] VITALS (34 sets, daily range): BP systolic 107–188; BP diastolic 66–101; PULSE 43–71; RESP 12–27; TEMP 35.9–36.8; O2SAT 83–97
[2021-08-05 04:45] LABS: Absolute Lymphocyte Count 1.11 X10^3/uL (0.83-4.51); Basophil# 0.05 X10^3/uL; Basophil% 0.5 % (0-1); Eosinophil# 0.02 X10^3/uL; Eosinophils% 0.2 % (0-5); Hematocrit 42.3 % (40-54); Hemoglobin 14.5 g/dL (13.0-16.5); Lymphocyte # 1.11 X10^3/ul (0.83-4.51); Lymphocyte % 11.3 % (19-41); Mean Corp Hgb Conc 34.3 g/dL (32-36); Mean Corpuscular Hgb 32.4 pg (27.0-32.0); Mean Corpuscular Volume 94.6 fL (80-94); Mean Platelet Vol. 9.7 fl (6.2-12.0); Monocyte# 0.27 X10^3/uL; Monocyte% 2.8 % (0-10); NRBC Flagged by Analyzer 0 % (0-5); Neutrophil # 7.98 X10^3/uL (2.7-7.7); Neutrophil % 81.4 % (47-70); Platelet Count 382 K/mm3 (150-450); RBC Distribution Width CV 14.3 % (11.6-14.6); RBC Distribution Width SD 48.9 fl (35.1-43.9); Red Blood Count 4.47 M/mm3 (4.6-6.2); White Blood Count 9.8 K/mm3 (4.4-11.0)
[2021-08-05 05:00] LABS: Bedside Glucose 243 mg/dL (70-110)
[2021-08-05 05:01] LABS: Anion Gap 8 (5-15); BUN 30 mg/dL (7-18); BUN/Creat Ratio 50.2 RATIO (10-20); Calcium,Total 8.5 mg/dL (8.5-10.1); Chloride 106 mmol/L (98-107); EST Glomerular Filtration Rate 142 mL/min (>60); Est Glom Filt Rate - Afr Amer 171 mL/min (>60); Estimated Creatinine Clearance 72.16 ml/min; Glucose 147 mg/dL (74-106); Potassium 3.7 mmol/L (3.5-5.1); Sodium Level 140 mmol/L (136-145)
[2021-08-05] MEDS: LORazepam 0.5 MG Tablet PO (06:09)
--- NOTE | 2021-08-05 07:44 | PN.CC_ITS ---
Assessment & Plan Assessment/Plan (1) COVID-19: (2) Respiratory failure: QUALIFIERS: Chronicity: acute Respiratory failure complication: hypoxia Qualified Code(s): J96.01 - Acute respiratory failure with hypoxia PLAN: RECOMMENDATIONS: 1. Continue high flow nasal cannula with BiPAP rescue as necessary. . 2. Wean to Airvo heated high flow or high flow nasal cannula for saturations greater than 90%. 3. Continue Decadron to complete 10-day treatment course. 4. Continue baricitinib per ID recommendations. 5. Encourage incentive spirometer use and mobilize patient as tolerated. 6. We will challenge with diuretics IMPRESSIONS: 1. Acute hypoxemic respiratory failure secondary to COVID-19 pneumonia The patient presented to the hospital with progressive Covid symptoms, which initially began on July 20. The patient is currently outside of the window to administer remdesivir. Therefore, he will be continued on Decadron to complete a 10-day treatment course. CTA showed no evidence for PE. Therefore, the patient will be continued on twice daily Lovenox. Infectious diseases has placed the patient on baricitinib, which will be continued to complete a treatment course. Continue supplemental oxygen to maintain saturations at or above 90%. Periodic use of diuretics can be entertained to maintain euvolemic state. Attempt to wean the patient to Airvo heated high flow or conventional hig h flow nasal cannula oxygen again today. 2. Obesity/diabetes mellitus/history of coronary artery disease status post PCI/hypertension/hyperlipidemia Complicates care, management, recovery and prognosis. Continue home medications as indicated. This note was generated with [employer] dictation software. It may contain incorrect words, spelling, and punctuation that were not noted in checking the note before signing. Subjective Subjective Patient did okay overnight. No acute issues were reported. Patient was able to be weaned to high flow nasal cannula this morning and appeared to be tolerating this okay. Patient still with increased shortness of breath with minimal activity. Patient is not reporting any chest pain. Objective Data Objective Data Vital Signs: Vital Signs Temp Pulse Resp BP Pulse Ox 35.9 C L 55 L 16 176/81 H 91 08/05/21 04:00 08/05/21 06:00 08/05/21 06:00 08/05/21 06:00 08/05/21 06:00 Oxygen Flow Rate (L/min) 13 Oxygen Delivery Method Nasal Cannula Weight: 110.8 kg Body Mass Index (BMI) 36.0 Intake & Output: Intake and Output for Last 24 Hours 08/03/21 08/04/21 08/05/21 23:59 23:59 23:59 Intake Total 220 / 220 0 / 0 Output Total 1925 / 1925 750 / 750 Balance -1705 / -1705 -730 / -730 0 / 0 Lab / Micro Data Result Diagrams: 08/05/21 04:35 08/05/21 04:35 Labs: Laboratory Results - last 24 hr 08/04/21 12:24: POC Glucose 144 H 08/04/21 17:02: POC Glucose 233 H 08/04/21 19:53: POC Glucose 243 H 08/05/21 04:35: WBC 9.8, RBC 4.47 L, Hgb 14.5, Hct 42.3, MCV 94.6 H, MCH 32.4 H, MCHC 34.3, RDW Std Deviation 48.9 H, RDW Coeff of Myriam 14.3, Plt Count 382, MPV 9.7, Immature Gran % (Auto) 3.800 H, Neut % (Auto) 81.4 H, Lymph % (Auto) 11.3 L , [place] % (Auto) 2.8, Eos % (Auto) 0.2, Baso % (Auto) 0.5, Absolute Neuts (auto) 8.0 H, Absolute Lymphs (auto) 1.11, Nucleated RBC % 0 08/05/21 04:35: Sodium 140, Potassium 3.7, Chloride 106, Carbon Dioxide 26.0, Anion Gap 8, BUN 30 H, Creatinine 0.60 L, Estim Creat Clear Calc 72.16, Est GFR (MDRD) Af Amer 171, Est GFR (MDRD) Non-Af 142, BUN/Creatinine Ratio 50.2 H, Glucose 147 H, Calcium 8.5 Micro: Microbiology 08/01/21 03:31 Blood Culture (Wb) - Anticubital Right Blood Culture - Preliminary No growth in 48 hours. 08/01/21 03:25 Blood Culture (Wb) - Anticubital Left Blood Culture - Preliminary No growth in 48 hours. 08/01/21 15:20 Urine, Clean Catch Legionella Antigen - Final 08/01/21 15:20 Urine, Clean Catch Streptococcus pneumoniae Antigen (M - Final 08/01/21 07:45 Mucosa - Nose Respiratory Panel (PCR) - Final 08/01/21 03:20 Nasal Secretion SARS-CoV-2 Antigen (Rapid) - Final Physical Exam Const alert Constitutional Narrative: Fatigued in appearance. General Appearance: cooperative, in distress Positive for moderate and anxious; Negative for on BiPAP Nutritional Appearance: obese HEENT normocephalic and head/scalp atraumatic Eyes PERRL and EOMs intact bilaterally Neck supple General: trachea midline Chest inspection of chest normal Chest: symmetrical chest wall rise; Negative for crepitus Resp Effort and Inspection: tachypneic Auscultation: diminished lung sounds; Negative for rales, rhonchi or wheezes Cardio regular rhythm, S1 normal heart sound and S2 normal heart sound Rate: bradycardia GI normal to inspection, nondistended, normoactive bowel sounds Extremity no clubbing, cyanosis or edema Skin no rashes or lesions noted Neuro CN's II-XII intact bilaterally, moves all extremities and no focal motor deficits Psych Mood & Affect: anxious Charges/Coding Visit Charges Inpatient E&M: 15580 Subs Hosp L3
[2021-08-05 09:31] LABS: Bedside Glucose 120 mg/dL (70-110)
[2021-08-05] MEDS: Ascorbic Acid 500 MG Tablet PO ×2 (10:06→18:25)
[2021-08-05] MEDS: dexAMETHasone 4 MG/ML Vial 6 MG IV (10:06)
[2021-08-05] MEDS: Potassium Chloride Oral Tablet 20 MEQ 40 MEQ PO (10:06)
[2021-08-05] MEDS: Furosemide 20 MG Tablet PO ×2 (10:07→18:25)
[2021-08-05] MEDS: Enoxaparin 30 MG/0.3 ML Syringe SC ×2 (10:07→21:50)
[2021-08-05] MEDS: Famotidine 200 MG/20 ML MDV 20 MG in 0.9% Normal Saline (Pres. free 8 ML 300 MG IV (10:08)
[2021-08-05] MEDS: 0.9% Saline Lock 10 ML Syringe IV ×2 (10:09→21:53)
[2021-08-05] MEDS: LORazepam 1 MG Tablet PO ×2 (10:16→16:14)
--- NOTE | 2021-08-05 11:51 | CASEMGMT ---
SW participated in ICU rounds this morning. SW called to offer support, message left. ESTEBAN Huntley
[2021-08-05] MEDS: Insulin Lispro 100 UNIT/ML INSULN.PEN SC ×3 (12:53→21:49)
--- NOTE | 2021-08-05 13:03 | PCM.PN.HOSP ---
Subjective Subjective Doing well, no new issues overnight. He has been able to have some of his oxygen weaned down to high flow nasal cannula Objective Data Objective Data Vital Signs: Vital Signs Temp Pulse Resp BP Pulse Ox 98.3 F 58 L 23 H 134/92 H 97 08/05/21 08:00 08/05/21 11:00 08/05/21 11:00 08/05/21 11:00 08/05/21 11:00 Oxygen Flow Rate (L/min) 60 Oxygen Delivery Method Airvo Weight: 244 lb 4.355 oz Body Mass Index (BMI) 36.0 Intake & Output: Intake and Output for Last 24 Hours 08/04/21 08/05/21 08/06/21 03:59 03:59 03:59 Intake Total 20 / 20 20 20 100 / 100 Output Total 1400 / 1400 750 / 750 725 / 725 Balance -1380 / -1380 -730 / -730 -625 / -625 Lab / Micro Data Result Diagrams: 08/06/21 06:28 08/06/21 06:28 Labs: Laboratory Results - last 24 hr 08/04/21 12:24: POC Glucose 144 H 08/04/21 17:02: POC Glucose 233 H 08/04/21 19:53: POC Glucose 243 H 08/05/21 04:35: WBC 9.8, RBC 4.47 L, Hgb 14.5, Hct 42.3, MCV 94.6 H, MCH 32.4 H, MCHC 34.3, RDW Std Deviation 48.9 H, RDW Coeff of Myriam 14.3, Plt Count 382, MPV 9.7, Immature Gran % (Auto) 3.800 H, Neut % (Auto) 81.4 H, Lymph % (Auto) 11.3 L, [place] % (Auto) 2.8, Eos % (Auto) 0.2, Baso % (Auto) 0.5, Absolute Neuts (auto) 8.0 H, Absolute Lymphs (auto) 1.11, Nucleated RBC % 0 08/05/21 04:35: Sodium 140, Potassium 3.7, Chloride 106, Carbon Dioxide 26.0, Anion Gap 8, BUN 30 H, Creatinine 0.60 L, Estim Creat Clear Calc 72.16, Est GFR (MDRD) Af Amer 171, Est GFR (MDRD) Non-Af 142, BUN/Creatinine Ratio 50.2 H, Glucose 147 H, Calcium 8.5 08/05/21 09:01: POC Glucose 120 H Micro: Microbiology 08/01/21 03:31 Blood Culture (Wb) - Anticubital Right Blood Culture - Preliminary No growth in 48 hours. 08/01/21 03:25 Blood Culture (Wb) - Anticubital Left Blood Culture - Preliminary No growth in 48 hours. 08/01/21 15:20 Urine, Clean Catch Legionella Antigen - Final 08/01/21 15:20 Urine, Clean Catch Streptococcus pneumoniae Antigen (M - Final 08/01/21 07:45 Mucosa - Nose Respiratory Panel (PCR) - Final 08/01/21 03:20 Nasal Secretion SARS-CoV-2 Antigen (Rapid) - Final Physical Exam Const alert and oriented x3 Constitutional Narrative: Mild distress due to anxiety from his breathing General Appearance: cooperative HEENT normocephalic and moist oral mucous membranes Mouth: dry mucous membranes Eyes PERRL, EOMs intact bilaterally and conjunctivae normal Neck supple and no JVD Resp no retractions and no use of accessory muscles Effort and Inspection: tachypneic Auscultation: diminished lung sounds; Negative for crackles, rales, rhonchi or wheezes Cardio regular rate, regular rhythm, S1 normal heart sound, S2 normal heart sound and no murmurs GI soft to palpation, non-tender and non-distended; Negative for hepatosplenomegaly Extremity no clubbing, cyanosis or edema Skin no rashes or lesions noted Neuro no focal motor deficits and no sensory deficits noted Psych Mood & Affect: anxious Assessment & Plan Assessment/Plan (1) Pneumonia due to COVID-19 virus: (2) COVID-19: PLAN: 1. Acute hypoxic respiratory failure secondary to COVID-19 pneumonia -Continue with high flow nasal cannula can increase to air Vo as needed -Continue with Decadron and baricitinib, not a candidate for remdesivir secondary to timing -Appreciate pulmonology assistance -Continue with pulmonary toileting 2. HTN/HLD/CAD status post stent -Blood pressure stable -Continue to hold his home medications -Continue with Lasix 3. DM2 -We will hold his blood pressure medications -Continue with sliding scale insulin, Accu-Cheks AC at bedtime -We will make adjustments as necessary DVT: Lovenox Charges/Coding Visit Charges Inpatient E&M: 31084 Subs Hosp L2
[2021-08-05 13:35] LABS: Bedside Glucose 175 mg/dL (70-110)
[2021-08-05 18:06] LABS: Bedside Glucose 235 mg/dL (70-110)
--- NOTE | 2021-08-05 20:58 | PCS.PANDOC ---
PANDEMIC DOCUMENTATION INITIATED: Date: 06/24/2021 Time: 190
[2021-08-05] MEDS: Famotidine 200 MG/20 ML MDV 20 MG in 0.9% Normal Saline (Pres. free 8 ML 10 MG IV (21:49)
[2021-08-05 22:01] LABS: Bedside Glucose 195 mg/dL (70-110)
[2021-08-06] VITALS (34 sets, daily range): BP systolic 92–183; BP diastolic 53–99; PULSE 44–72; RESP 18–32; TEMP 35.8–37.1; O2SAT 83–98
[2021-08-06 06:43] LABS: Absolute Lymphocyte Count 1.29 X10^3/uL (0.83-4.51); Basophil# 0.09 X10^3/uL; Basophil% 0.7 % (0-1); Eosinophil# 0.08 X10^3/uL; Eosinophils% 0.6 % (0-5); Hematocrit 43.9 % (40-54); Hemoglobin 14.9 g/dL (13.0-16.5); Lymphocyte # 1.29 X10^3/ul (0.83-4.51); Lymphocyte % 10.4 % (19-41); Mean Corp Hgb Conc 33.9 g/dL (32-36); Mean Corpuscular Volume 94.2 fL (80-94); Mean Platelet Vol. 9.7 fl (6.2-12.0); Monocyte# 0.42 X10^3/uL; Monocyte% 3.4 % (0-10); NRBC Flagged by Analyzer 0 % (0-5); Neutrophil # 10.02 X10^3/uL (2.7-7.7); Neutrophil % 81.1 % (47-70); Platelet Count 427 K/mm3 (150-450); RBC Distribution Width CV 13.9 % (11.6-14.6); RBC Distribution Width SD 48.4 fl (35.1-43.9); Red Blood Count 4.66 M/mm3 (4.6-6.2); White Blood Count 12.4 K/mm3 (4.4-11.0)
[2021-08-06 07:03] LABS: ALB/GLOB Ratio 0.5 RATIO (0.9-2.4); AST(SGOT) 51 U/L (15-37); Alanine Aminotransfer ALT/SGPT 100 U/L (16-61); Albumin, Serum 2.1 g/dL (3.2-5.0); Alkaline Phosphatase 106 U/L (45-117); Anion Gap 7 (5-15); BUN 23 mg/dL (7-18); BUN/Creat Ratio 50.4 RATIO (10-20); Calcium,Total 8.6 mg/dL (8.5-10.1); Chloride 109 mmol/L (98-107); Creatinine, Serum 0.46 mg/dL (0.70-1.30); EST Glomerular Filtration Rate 194 mL/min (>60); Est Glom Filt Rate - Afr Amer 234 mL/min (>60); Estimated Creatinine Clearance 72.16 ml/min; Globulin 4.1 g/dL (2.2-4.2); Glucose 121 mg/dL (74-106); Potassium 3.6 mmol/L (3.5-5.1); Protein, Total 6.2 g/dL (6.4-8.2); Sodium Level 140 mmol/L (136-145)
--- NOTE | 2021-08-06 07:45 | PCM.PN.INT ---
Assessment & Plan Assessment/Plan (1) COVID-19: (2) Respiratory failure: QUALIFIERS: Chronicity: acute Respiratory failure complication: hypoxia Qualified Code(s): J96.01 - Acute respiratory failure with hypoxia PLAN: RECOMMENDATIONS: 1. Continue high flow nasal cannula with BiPAP rescue as necessary. . 2. Possibly attempt weaning to high flow nasal cannula for saturations greater than 90%. 3. Continue Decadron to complete 10-day treatment course. 4. Continue baricitinib per ID recommendations. 5. Encourage incentive spirometer use and mobilize patient as tolerated. 6. We will challenge with diuretics and replete potassium as necessary IMPRESSIONS: 1. Acute hypoxemic respiratory failure secondary to COVID-19 pneumonia The patient presented to the hospital with progressive Covid symptoms, which initially began on July 20. The patient is currently outside of the window to administer remdesivir. Therefore, he will be continued on Decadron to complete a 10-day treatment course. CTA showed no evidence for PE. Therefore, the patient will be continued on twice daily Lovenox. Infectious diseases has placed the patient on baricitinib, which will be continued to complete a treatment course. There is mild increase in LFTs, but not enough to discontinue therapy in my opinion. Continue supplemental oxygen to maintain saturations at or above 90%. Periodic use of diuretics can be entertained to maintain euvolemic state. Attempt to wean the patient in FiO2 on Airvo heated high flow or possibly conventional high flow nasal cannula oxygen again today. 2. Obesity/diabetes mellitus/history of coronary artery disease status post PCI/hypertension/hyperlipidemia Complicates care, management, recovery and prognosis. Continue home medications as indicated. This note was generated with [employer] dictation software. It may contain incorrect words, spelling, and punctuation that were not noted in checking the note before signing. Subjective Subjective Patient did okay overnight. No acute issues were reported. Patient overall feels subjectively unchanged compared to previous. Patient states he does feel like he needs to have a bowel movement this morning. Objective Data Objective Data Vital Signs: Vital Signs Temp Pulse Resp BP Pulse Ox 37.1 C 60 28 H 151/69 H 90 08/06/21 03:00 08/06/21 06:07 08/06/21 06:07 08/06/21 06:00 08/06/21 06:07 Oxygen Flow Rate (L/min) 45 Oxygen Delivery Method Airvo Weight: 110.8 kg Body Mass Index (BMI) 36.0 Intake & Output: Intake and Output for Last 24 Hours 08/04/21 08/05/21 08/06/21 23:59 23:59 23:59 Intake Total / 20 1470 / 1470 200 / 200 Output Total 750 / 750 1700 / 1700 0 / 0 Balance -730 / -730 -230 / -230 200 / 200 Lab / Micro Data Result Diagrams: 08/06/21 06:28 08/06/21 06:28 Labs: Laboratory Results - last 24 hr 08/05/21 09:01: POC Glucose 120 H 08/05/21 12:52: POC Glucose 175 H 08/05/21 16:12: POC Glucose 235 H 08/05/21 21:47: POC Glucose 195 H 08/06/21 06:28: WBC 12.4 H, RBC 4.66, Hgb 14.9, Hct 43.9, MCV 94.2 H, MCH 32.0, MCHC 33.9, RDW Std Deviation 48.4 H, RDW Coeff of Myriam 13.9, Plt Count 427, MPV 9.7, Immature Gran % (Auto) 3.800 H, Neut % (Auto) 81.1 H, Lymph % (Auto) 10.4 L, [place] % (Auto) 3.4, Eos % (Auto) 0.6, Baso % (Auto) 0.7, Absolute Neuts (auto) 10.0 H, Absolute Lymphs (auto) 1.29, Nucleated RBC % 0 08/06/21 06:28: Sodium 140, Potassium 3.6, Chloride 109 H, Carbon Dioxide 24.0, Anion Gap 7, BUN 23 H, Creatinine 0.46 L, Estim Creat Clear Calc 72.16, Est GFR (MDRD) Af Amer 234, Est GFR (MDRD) Non-Af 194, BUN/Creatinine Ratio 50.4 H, Glucose 121 H, Calcium 8.6, Total Bilirubin 1.40 H, AST 51 H, ALT 100 H, Alkaline Phosphatase 106, Total Protein 6.2 L, Albumin 2.1 L, Globulin 4.1, Albumin/Globulin Ratio 0.5 L Micro: Microbiology 08/01/21 03:31 Blood Culture (Wb) - Anticubital Right Blood Culture - Preliminary No growth in 48 hours. 08/01/21 03:25 Blood Culture (Wb) - Anticubital Left Blood Culture - Preliminary No growth in 48 hours. 08/01/21 15:20 Urine, Clean Catch Legionella Antigen - Final 08/01/21 15:20 Urine, Clean Catch Streptococcus pneumoniae Antigen (M - Final 08/01/21 07:45 Mucosa - Nose Respiratory Panel (PCR) - Final 08/01/21 03:20 Nasal Secretion SARS-CoV-2 Antigen (Rapid) - Final Physical Exam Const alert Constitutional Narrative: Fatigued in appearance. Less anxious compared to yesterday General Appearance: cooperative, in distress Positive for moderate and anxious; Negative for on BiPAP Nutritional Appearance: obese HEENT normocephalic and head/scalp atraumatic Eyes PERRL and EOMs intact bilaterally Neck supple General: trachea midline Chest inspection of chest normal Chest: symmetrical chest wall rise; Negative for crepitus Resp Effort and Inspection: tachypneic Auscultation: diminished lung sounds; Negative for rales, rhonchi or wheezes Cardio regular rhythm, S1 normal heart sound and S2 normal heart sound Rate: bradycardia GI normal to inspection, nondistended, normoactive bowel sounds Extremity no clubbing, cyanosis or edema Skin no rashes or lesions noted Neuro CN's II-XII intact bilaterally, moves all extremities and no focal motor deficits Psych Mood & Affect: anxious Charges/Coding Visit Charges Inpatient E&M: 87209 Subs Hosp L3
[2021-08-06] MEDS: Famotidine 200 MG/20 ML MDV 20 MG in 0.9% Normal Saline (Pres. free 8 ML 300 MG IV ×2 (08:36→20:00)
[2021-08-06] MEDS: Enoxaparin 30 MG/0.3 ML Syringe SC ×2 (08:36→20:00)
[2021-08-06] MEDS: dexAMETHasone 4 MG/ML Vial 6 MG IV (08:37)
[2021-08-06] MEDS: Ascorbic Acid 500 MG Tablet PO ×2 (08:37→16:47)
[2021-08-06] MEDS: Potassium Chloride Oral Tablet 20 MEQ 40 MEQ PO (08:37)
[2021-08-06] MEDS: Furosemide 40 MG/4 ML Vial IV (08:37)
[2021-08-06] MEDS: 0.9% Saline Lock 10 ML Syringe IV (08:38)
[2021-08-06] MEDS: Insulin Lispro 100 UNIT/ML INSULN.PEN SC ×3 (11:39→20:03)
--- NOTE | 2021-08-06 15:45 | PCM.PN.HOSP ---
Subjective Subjective Feels much better than when he came in but feels about the same from yesterday. No new issues overnight. Objective Data Objective Data Vital Signs: Vital Signs Temp Pulse Resp BP Pulse Ox 97.6 F L 66 29 H 130/76 H 93 08/06/21 12:00 08/06/21 12:00 08/06/21 12:00 08/06/21 12:00 08/06/21 13:36 Oxygen Flow Rate (L/min) 10 Oxygen Delivery Method Nasal Cannula Weight: 244 lb 4.355 oz Body Mass Index (BMI) 36.0 Intake & Output: Intake and Output for Last 24 Hours 08/05/21 08/06/21 08/07/21 03:59 03:59 03:59 Intake Total 20 1470 / 1470 570 / 570 Output Total 750 / 750 1700 / 1700 800 / 800 Balance -730 / -730 -230 / -230 -230 / -230 Lab / Micro Data Result Diagrams: 08/06/21 06:28 08/06/21 06:28 Labs: Laboratory Results - last 24 hr 08/05/21 16:12: POC Glucose 235 H 08/05/21 21:47: POC Glucose 195 H 08/06/21 06:28: WBC 12.4 H, RBC 4.66, Hgb 14.9, Hct 43.9, MCV 94.2 H, MCH 32.0, MCHC 33.9, RDW Std Deviation 48.4 H, RDW Coeff of Myriam 13.9, Plt Count 427, MPV 9.7, Immature Gran % (Auto) 3.800 H, Neut % (Auto) 81.1 H, Lymph % (Auto) 10.4 L, [place] % (Auto) 3.4, Eos % (Auto) 0.6, Baso % (Auto) 0.7, Absolute Neuts (auto) 10.0 H, Absolute Lymphs (auto) 1.29, Nucleated RBC % 0 08/06/21 06:28: Sodium 140, Potassium 3.6, Chloride 109 H, Carbon Dioxide 24.0, Anion Gap 7, BUN 23 H, Creatinine 0.46 L, Estim Creat Clear Calc 72.16, Est GFR (MDRD) Af Amer 234, Est GFR (MDRD) Non-Af 194, BUN/Creatinine Ratio 50.4 H, Glucose 121 H, Calcium 8.6, Total Bilirubin 1.40 H, AST 51 H, ALT 100 H, Alkaline Phosphatase 106, Total Protein 6.2 L, Albumin 2.1 L, Globulin 4.1, Albumin/Globulin Ratio 0.5 L Micro: Microbiology 08/01/21 03:31 Blood Culture (Wb) - Anticubital Right Blood Culture - Final No growth in 5 days. 08/01/21 03:25 Blood Culture (Wb) - Anticubital Left Blood Culture - Final No growth in 5 days. 08/01/21 15:20 Urine, Clean Catch Legionella Antigen - Final 08/01/21 15:20 Urine, Clean Catch Streptococcus pneumoniae Antigen (M - Final 08/01/21 07:45 Mucosa - Nose Respiratory Panel (PCR) - Final 08/01/21 03:20 Nasal Secretion SARS-CoV-2 Antigen (Rapid) - Final Physical Exam Const alert, oriented x3 and no apparent distress General Appearance: cooperative HEENT normocephalic and moist oral mucous membranes Eyes PERRL, EOMs intact bilaterally and conjunctivae normal Neck supple and no JVD Resp normal respiratory effort, no retractions, no use of accessory muscles and clear to auscultation bilaterally Effort and Inspection: tachypneic Auscultation: diminished lung sounds; Negative for crackles, rales, rhonchi or wheezes Cardio regular rate, regular rhythm, S1 normal heart sound, S2 normal heart sound and no murmurs GI soft to palpation, non-tender and non-distended; Negative for hepatosplenomegaly Extremity no clubbing, cyanosis or edema Skin no rashes or lesions noted Neuro no focal motor deficits and no sensory deficits noted Psych affect normal Appearance: appropriate Assessment & Plan Assessment/Plan (1) Pneumonia due to COVID-19 virus: (2) COVID-19: PLAN: 1. Acute hypoxic respiratory failure secondary to COVID-19 pneumonia -Continue with high flow nasal cannula can increase to air Vo as needed -Continue with Decadron and baricitinib, not a candidate for remdesivir secondary to timing -Appreciate pulmonology assistance -Continue with pulmonary toileting 2. HTN/HLD/CAD status post stent -Blood pressure stable -Continue to hold his home medications -Continue with Lasix 3. DM2 -We will hold his blood pressure medications -Continue with sliding scale insulin, Accu-Cheks AC at bedtime -We will make adjustments as necessary DVT: Lovenox Charges/Coding Visit Charges Inpatient E&M: 17465 Subs Hosp L2
[2021-08-06 16:56] LABS: Bedside Glucose 186 mg/dL (70-110)
[2021-08-06 17:01] LABS: Bedside Glucose 218 mg/dL (70-110)
[2021-08-06] MEDS: Senna/Docusate Sodium 1 Tablet 2 TABLET PO (20:00)
[2021-08-06] MEDS: Acetaminophen 325 MG Tablet 650 MG PO (20:01)
[2021-08-06 23:36] LABS: Bedside Glucose 223 mg/dL (70-110)
[2021-08-07] VITALS (22 sets, daily range): BP systolic 108–163; BP diastolic 66–89; PULSE 47–64; RESP 18–26; TEMP 35.8–36.6; O2SAT 92–97
[2021-08-07 05:01] LABS: Absolute Lymphocyte Count 1.36 X10^3/uL (0.83-4.51); Absolute Neutrophil Count 9.8 X10^3/uL (2.0-7.7); Basophil# 0.09 X10^3/uL; Basophil% 0.7 % (0-1); Eosinophil# 0.03 X10^3/uL; Eosinophils% 0.2 % (0-5); Hematocrit 44.4 % (40-54); Hemoglobin 15.1 g/dL (13.0-16.5); Lymphocyte # 1.36 X10^3/ul (0.83-4.51); Lymphocyte % 11.1 % (19-41); Mean Corpuscular Hgb 32.3 pg (27.0-32.0); Mean Corpuscular Volume 94.9 fL (80-94); Mean Platelet Vol. 9.7 fl (6.2-12.0); Monocyte# 0.46 X10^3/uL; Monocyte% 3.7 % (0-10); NRBC Flagged by Analyzer 0 % (0-5); Neutrophil # 9.81 X10^3/uL (2.7-7.7); Neutrophil % 79.8 % (47-70); Platelet Count 509 K/mm3 (150-450); RBC Distribution Width SD 49.3 fl (35.1-43.9); Red Blood Count 4.68 M/mm3 (4.6-6.2); White Blood Count 12.3 K/mm3 (4.4-11.0)
[2021-08-07 05:17] LABS: ALB/GLOB Ratio 0.5 RATIO (0.9-2.4); AST(SGOT) 45 U/L (15-37); Alanine Aminotransfer ALT/SGPT 120 U/L (16-61); Albumin, Serum 2.2 g/dL (3.2-5.0); Alkaline Phosphatase 106 U/L (45-117); Anion Gap 8 (5-15); BUN 33 mg/dL (7-18); BUN/Creat Ratio 45.2 RATIO (10-20); Calcium,Total 8.4 mg/dL (8.5-10.1); Chloride 105 mmol/L (98-107); Creatinine, Serum 0.73 mg/dL (0.70-1.30); EST Glomerular Filtration Rate 113 mL/min (>60); Est Glom Filt Rate - Afr Amer 136 mL/min (>60); Estimated Creatinine Clearance 72.16 ml/min; Globulin 4.3 g/dL (2.2-4.2); Glucose 144 mg/dL (74-106); Magnesium 2.4 mg/dL (1.6-2.6); Phosphorus 3.6 mg/dL (2.5-4.9); Potassium 4.2 mmol/L (3.5-5.1); Protein, Total 6.5 g/dL (6.4-8.2); Sodium Level 139 mmol/L (136-145)
--- NOTE | 2021-08-07 06:43 | PCM.PN.INT ---
Assessment & Plan Assessment/Plan (1) COVID-19: (2) Respiratory failure: QUALIFIERS: Chronicity: acute Respiratory failure complication: hypoxia Qualified Code(s): J96.01 - Acute respiratory failure with hypoxia PLAN: RECOMMENDATIONS: 1. Continue nasal cannula and wean as tolerated 2. Okay to discontinue Airvo and BiPAP secondary to nonuse 3. Continue Decadron to complete 10-day treatment course. 4. Continue baricitinib per ID recommendations. 5. Encourage incentive spirometer use and mobilize patient as tolerated. 6. We will challenge with diuretics and replete potassium as necessary 7. Okay to leave the intensive care unit from my perspective IMPRESSIONS: 1. Acute hypoxemic respiratory failure secondary to COVID-19 pneumonia The patient presented to the hospital with progressive Covid symptoms, which initially began on July 20. The patient is currently outside of the window to administer remdesivir. Therefore, he will be continued on Decadron to complete a 10-day treatment course. CTA showed no evidence for PE. Therefore, the patient will be continued on twice daily Lovenox. Infectious diseases has placed the patient on baricitinib, which will be continued to complete a treatment course. There is mild increase in LFTs, but not enough to discontinue therapy in my opinion. Continue supplemental oxygen to maintain saturations at or above 90%. Periodic use of diuretics can be entertained to maintain euvolemic state. We will discontinue BiPAP and Airvo. 2. Obesity/diabetes mellitus/history of coronary artery disease status post PCI/hypertension/hyperlipidemia Complicates care, management, recovery and prognosis. Continue home medications as indicated. This note was generated with [employer] dictation software. It may contain incorrect words, spelling, and punctuation that were not noted in checking the note before signing. Subjective Subjective Patient did well overnight. Patient was unable to tolerate prone positioning, so slept in a chair. Patient has been maintaining nasal cannula oxygen over the last 24 hours. Patient is not reporting any chest pain. Patient is still having intermittently productive cough. Objective Data Objective Data Vital Signs: Vital Signs Temp Pulse Resp BP Pulse Ox 36.3 C L 59 L 25 H 151/79 H 93 08/07/21 04:00 08/07/21 06:00 08/07/21 06:00 08/07/21 06:00 08/07/21 05:00 Oxygen Flow Rate (L/min) 99 Oxygen Delivery Method Nasal Cannula Weight: 110.8 kg Body Mass Index (BMI) 36.0 Intake & Output: Intake and Output for Last 24 Hours 08/05/21 08/06/21 08/07/21 23:59 23:59 23:59 Intake Total 1470 / 1470 680 / 920 390 / 390 Output Total 1700 / 1700 800 / 1100 300 / 300 Balance -230 / -230 -120 / -180 90 / 90 Lab / Micro Data Result Diagrams: 08/07/21 03:15 08/07/21 03:15 Labs: Laboratory Results - last 24 hr 08/06/21 06:28: WBC 12.4 H, RBC 4.66, Hgb 14.9, Hct 43.9, MCV 94.2 H, MCH 32.0, MCHC 33.9, RDW Std Deviation 48.4 H, RDW Coeff of Myriam 13.9, Plt Count 427, MPV 9.7, Immature Gran % (Auto) 3.800 H, Neut % (Auto) 81.1 H, Lymph % (Auto) 10.4 L, [place] % (Auto) 3.4, Eos % (Auto) 0.6, Baso % (Auto) 0.7, Absolute Neuts (auto) 10.0 H, Absolute Lymphs (auto) 1.29, Nucleated RBC % 0 08/06/21 06:28: Sodium 140, Potassium 3.6, Chloride 109 H, Carbon Dioxide 24.0, Anion Gap 7, BUN 23 H, Creatinine 0.46 L, Estim Creat Clear Calc 72.16, Est GFR (MDRD) Af Amer 234, Est GFR (MDRD) Non-Af 194, BUN/Creatinine Ratio 50.4 H, Glucose 121 H, Calcium 8.6, Total Bilirubin 1.40 H, AST 51 H, ALT 100 H, Alkaline Phosphatase 106, Total Protein 6.2 L, Albumin 2.1 L, Globulin 4.1, Albumin/Globulin Ratio 0.5 L 08/06/21 11:34: POC Glucose 186 H 08/06/21 16:41: POC Glucose 218 H 08/06/21 20:03: POC Glucose 223 H 08/07/21 03:15: WBC 12.3 H, RBC 4.68, Hgb 15.1, Hct 44.4, MCV 94.9 H, MCH 32.3 H, MCHC 34.0, RDW Std Deviation 49.3 H, RDW Coeff of Myriam 14.0, Plt Count 509 H, MPV 9.7, Immature Gran % (Auto) 4.500 H, Neut % (Auto) 79.8 H, Lymph % (Auto) 11.1 L, [place] % (Auto) 3.7, Eos % (Auto) 0.2, Baso % (Auto) 0.7, Absolute Neuts (auto) 9.8 H, Absolute Lymphs (auto) 1.36, Nucleated RBC % 0 08/07/21 03:15: Sodium 139, Potassium 4.2, Chloride 105, Carbon Dioxide 26.0, Anion Gap 8, BUN 33 H, Creatinine 0.73, Estim Creat Clear Calc 72.16, Est GFR (MDRD) Af Amer 136, Est GFR (MDRD) Non-Af 113, BUN/Creatinine Ratio 45.2 H, Glucose 144 H, Calcium 8.4 L, Phosphorus 3.6, Magnesium 2.4, Total Bilirubin 1.20 H, AST 45 H, ALT 120 H, Alkaline Phosphatase 106, Total Protein 6.5, Albumin 2.2 L, Globulin 4.3 H, Albumin/Globulin Ratio 0.5 L Micro: Microbiology 08/01/21 03:31 Blood Culture (Wb) - Anticubital Right Blood Culture - Final No growth in 5 days. 08/01/21 03:25 Blood Culture (Wb) - Anticubital Left Blood Culture - Final No growth in 5 days. 08/01/21 15:20 Urine, Clean Catch Legionella Antigen - Final 08/01/21 15:20 Urine, Clean Catch Streptococcus pneumoniae Antigen (M - Final 08/01/21 07:45 Mucosa - Nose Respiratory Panel (PCR) - Final 08/01/21 03:20 Nasal Secretion SARS-CoV-2 Antigen (Rapid) - Final Physical Exam Const alert Constitutional Narrative: Less anxious compared to yesterday. Tolerating nasal cannula General Appearance: cooperative; Negative for on BiPAP Nutritional Appearance: obese HEENT normocephalic and head/scalp atraumatic Eyes PERRL and EOMs intact bilaterally Neck supple General: trachea midline Chest inspection of chest normal Chest: symmetrical chest wall rise; Negative for crepitus Resp Effort and Inspection: tachypneic Auscultation: diminished lung sounds; Negative for rales, rhonchi or wheezes Cardio regular rhythm, S1 normal heart sound and S2 normal heart sound Rate: bradycardia GI normal to inspection, nondistended, normoactive bowel sounds Extremity no clubbing, cyanosis or edema Skin no rashes or lesions noted Neuro CN's II-XII intact bilaterally, moves all extremities and no focal motor deficits Psych Mood & Affect: anxious Charges/Coding Visit Charges Inpatient E&M: 72502 Subs Hosp L3
--- NOTE | 2021-08-07 08:17 | EKG12_ITS ---
Test Reason : RHYTHM CHANGE Blood Pressure : / mmHG Vent. Rate : 057 BPM Atrial Rate : 057 BPM P-R Int : 158 ms QRS Dur : 158 ms QT Int : 470 ms P-R-T Axes : 019 029 -09 degrees QTc Int : 457 ms Sinus bradycardia Right bundle branch block T wave abnormality, consider inferior ischemia Abnormal ECG No previous ECGs available Confirmed by FREDY MOE, ENE ([id number]), supervising editor news reel JOHN GRIFFITHS ([id number]) on 08/12/2021 1:02:09 PM Referred By: DR AU Confirmed By:ENE DANIEL MD
[2021-08-07] MEDS: 0.9% Saline Lock 10 ML Syringe IV (08:28)
[2021-08-07] MEDS: Enoxaparin 30 MG/0.3 ML Syringe SC ×2 (08:28→22:29)
[2021-08-07] MEDS: Famotidine 200 MG/20 ML MDV 20 MG in 0.9% Normal Saline (Pres. free 8 ML 300 MG IV (08:28)
[2021-08-07] MEDS: Ascorbic Acid 500 MG Tablet PO ×2 (08:29→16:22)
[2021-08-07] MEDS: dexAMETHasone 4 MG/ML Vial 6 MG IV (08:29)
[2021-08-07] MEDS: Furosemide 80 MG Tablet PO ×2 (08:29→16:24)
[2021-08-07 10:45] LABS: Bedside Glucose 189 mg/dL (70-110)
[2021-08-07] MEDS: Insulin Lispro 100 UNIT/ML INSULN.PEN SC ×2 (12:10→16:22)
--- NOTE | 2021-08-07 13:07 | PCM.PN.HOSP ---
Subjective Subjective Doing well, feels a bit better. Improving on his oxygen requirements. Objective Data Objective Data Vital Signs: Vital Signs Temp Pulse Resp BP Pulse Ox 97.4 F L 62 25 H 143/73 H 95 08/07/21 12:00 08/07/21 12:00 08/07/21 12:00 08/07/21 12:00 08/07/21 12:00 Oxygen Flow Rate (L/min) 5 Oxygen Delivery Method Nasal Cannula Weight: 244 lb 4.355 oz Body Mass Index (BMI) 36.0 Intake & Output: Intake and Output for Last 24 Hours 08/06/21 08/07/21 08/08/21 03:59 03:59 03:59 Intake Total 1470 / 1470 920 / 920 640 / 640 Output Total 1700 / 1700 1100 / 1100 400 / 400 Balance -230 / -230 -180 / -180 240 / 240 Lab / Micro Data Result Diagrams: 08/07/21 03:15 08/07/21 03:15 Labs: Laboratory Results - last 24 hr 08/06/21 11:34: POC Glucose 186 H 08/06/21 16:41: POC Glucose 218 H 08/06/21 20:03: POC Glucose 223 H 08/07/21 03:15: WBC 12.3 H, RBC 4.68, Hgb 15.1, Hct 44.4, MCV 94.9 H, MCH 32.3 H, MCHC 34.0, RDW Std Deviation 49.3 H, RDW Coeff of Myriam 14.0, Plt Count 509 H, MPV 9.7, Immature Gran % (Auto) 4.500 H, Neut % (Auto) 79.8 H, Lymph % (Auto) 11.1 L, [place] % (Auto) 3.7, Eos % (Auto) 0.2, Baso % (Auto) 0.7, Absolute Neuts (auto) 9.8 H, Absolute Lymphs (auto) 1.36, Nucleated RBC % 0 08/07/21 03:15: Sodium 139, Potassium 4.2, Chloride 105, Carbon Dioxide 26.0, Anion Gap 8, BUN 33 H, Creatinine 0.73, Estim Creat Clear Calc 72.16, Est GFR (MDRD) Af Amer 136, Est GFR (MDRD) Non-Af 113, BUN/Creatinine Ratio 45.2 H, Glucose 144 H, Calcium 8.4 L, Phosphorus 3.6, Magnesium 2.4, Total Bilirubin 1.20 H, AST 45 H, ALT 120 H, Alkaline Phosphatase 106, Total Protein 6.5, Albumin 2.2 L, Globulin 4.3 H, Albumin/Globulin Ratio 0.5 L 08/07/21 10:42: POC Glucose 189 H Micro: Microbiology 08/01/21 03:31 Blood Culture (Wb) - Anticubital Right Blood Culture - Final No growth in 5 days. 08/01/21 03:25 Blood Culture (Wb) - Anticubital Left Blood Culture - Final No growth in 5 days. 08/01/21 15:20 Urine, Clean Catch Legionella Antigen - Final 08/01/21 15:20 Urine, Clean Catch Streptococcus pneumoniae Antigen (M - Final 08/01/21 07:45 Mucosa - Nose Respiratory Panel (PCR) - Final 08/01/21 03:20 Nasal Secretion SARS-CoV-2 Antigen (Rapid) - Final Physical Exam Const alert, oriented x3 and no apparent distress General Appearance: cooperative HEENT normocephalic and moist oral mucous membranes Eyes PERRL, EOMs intact bilaterally and conjunctivae normal Neck supple and no JVD Resp normal respiratory effort, no retractions, no use of accessory muscles and clear to auscultation bilaterally Effort and Inspection: tachypneic Auscultation: diminished lung sounds; Negative for crackles, rales, rhonchi or wheezes Cardio regular rate, regular rhythm, S1 normal heart sound, S2 normal heart sound and no murmurs GI soft to palpation, non-tender and non-distended; Negative for hepatosplenomegaly Extremity no clubbing, cyanosis or edema Skin no rashes or lesions noted Neuro no focal motor deficits and no sensory deficits noted Psych affect normal Appearance: appropriate Assessment & Plan Assessment/Plan (1) Pneumonia due to COVID-19 virus: (2) COVID-19: PLAN: 1. Acute hypoxic respiratory failure secondary to COVID-19 pneumonia -Continue with high flow nasal cannula can increase to air Vo as needed -Continue with Decadron and baricitinib, not a candidate for remdesivir secondary to timing -Appreciate pulmonology assistance -Continue with pulmonary toileting, will transfer to [facility] [place] today as his oxygen status is stable on nasal cannula 2. HTN/HLD/CAD status post stent -Blood pressure stable -Continue to hold his home medications -Continue with Lasix 3. DM2 -We will hold his blood pressure medications -Continue with sliding scale insulin, Accu-Cheks AC at bedtime -We will make adjustments as necessary DVT: Lovenox Charges/Coding Visit Charges Inpatient E&M: 92093 Subs Hosp L2
[2021-08-07 16:45] LABS: Bedside Glucose 234 mg/dL (70-110)
--- NOTE | 2021-08-07 18:00 | NURSING ---
Aida called updated on room change to 322
[2021-08-07] MEDS: Famotidine 20 MG Tablet PO (22:28)
[2021-08-07 22:55] LABS: Bedside Glucose 141 mg/dL (70-110)
[2021-08-08] VITALS (11 sets, daily range): BP systolic 130–142; BP diastolic 70–76; PULSE 54–65; RESP 18–20; TEMP 35.8–36.6; O2SAT 80–95
[2021-08-08 06:35] LABS: Bedside Glucose 127 mg/dL (70-110)
[2021-08-08 07:54] LABS: Anion Gap 5 (5-15); BUN 31 mg/dL (7-18); BUN/Creat Ratio 42.8 RATIO (10-20); Calcium,Total 8.5 mg/dL (8.5-10.1); Chloride 107 mmol/L (98-107); Creatinine, Serum 0.72 mg/dL (0.70-1.30); EST Glomerular Filtration Rate 114 mL/min (>60); Est Glom Filt Rate - Afr Amer 137 mL/min (>60); Estimated Creatinine Clearance 72.16 ml/min; Glucose 112 mg/dL (74-106); Potassium 3.6 mmol/L (3.5-5.1); Sodium Level 140 mmol/L (136-145)
--- NOTE | 2021-08-08 08:36 | PCM.PN.INT ---
Assessment & Plan Assessment/Plan (1) COVID-19: (2) Respiratory failure: QUALIFIERS: Chronicity: acute Respiratory failure complication: hypoxia Qualified Code(s): J96.01 - Acute respiratory failure with hypoxia PLAN: RECOMMENDATIONS: 1. Continue nasal cannula and wean as tolerated 2. Continue to encourage incentive spirometer, Acapella and out of bed as tolerated 3. Continue Decadron to complete 10-day treatment course. 4. Continue baricitinib per ID recommendations. 5. We will challenge with diuretics and replete potassium as necessary 6. Obtain walking oximetry IMPRESSIONS: 1. Acute hypoxemic respiratory failure secondary to COVID-19 pneumonia The patient presented to the hospital with progressive Covid symptoms, which initially began on July 20. The patient is currently outside of the window to administer remdesivir. Therefore, he will be continued on Decadron to complete a 10-day treatment course. CTA showed no evidence for PE. Therefore, the patient will be continued on twice daily Lovenox. Infectious diseases has placed the patient on baricitinib, which will be continued to complete a treatment course. There is mild increase in LFTs, but not enough to discontinue therapy in my opinion. Continue supplemental oxygen to maintain saturations at or above 90%. Periodic use of diuretics can be entertained to maintain euvolemic state. Will obtain a walking oximetry today. Patient potentially able to be discharged in the next 24 to 48 hours. If discharged, patient can follow-up in our office in 4 to 6 weeks to evaluate for cessation of supplemental oxygen. 2. Obesity/diabetes mellitus/history of coronary artery disease status post PCI/hypertension/hyperlipidemia Complicates care, management, recovery and prognosis. Continue home medications as indicated. This note was generated with [employer] dictation software. It may contain incorrect words, spelling, and punctuation that were not noted in checking the note before signing. Subjective Subjective Patient did okay overnight. No acute issues were reported. Patient is reporting a productive cough. Nursing continues to report patient marginally cooperative with incentive spirometer, Acapella and continues to refuse prone positioning. Objective Data Objective Data Vital Signs: Vital Signs Temp Pulse Resp BP Pulse Ox 36.4 C L 54 L 20 H 136/72 H 92 08/08/21 04:21 08/08/21 04:23 08/08/21 04:21 08/08/21 04:21 08/08/21 07:38 Oxygen Flow Rate (L/min) 6 Oxygen Delivery Method Nasal Cannula Weight: 106.4 kg Body Mass Index (BMI) 36.0 Intake & Output: Intake and Output for Last 24 Hours 08/06/21 08/07/21 08/08/21 23:59 23:59 23:59 Intake Total 680 / 920 1080 / 1180 100 / 100 Output Total 800 / 1100 700 / 700 Balance -120 / -180 380 / 480 100 / 100 Lab / Micro Data Result Diagrams: 08/07/21 03:15 08/08/21 06:57 Labs: Laboratory Results - last 24 hr 08/07/21 10:42: POC Glucose 189 H 08/07/21 16:21: POC Glucose 234 H 08/07/21 22:28: POC Glucose 141 H 08/08/21 06:25: POC Glucose 127 H 08/08/21 06:57: Sodium 140, Potassium 3.6, Chloride 107, Carbon Dioxide 28.0, Anion Gap 5, BUN 31 H, Creatinine 0.72, Estim Creat Clear Calc 72.16, Est GFR (MDRD) Af Amer 137, Est GFR (MDRD) Non-Af 114, BUN/Creatinine Ratio 42.8 H, Glucose 112 H, Calcium 8.5 Micro: Microbiology 08/01/21 03:31 Blood Culture (Wb) - Anticubital Right Blood Culture - Final No growth in 5 days. 08/01/21 03:25 Blood Culture (Wb) - Anticubital Left Blood Culture - Final No growth in 5 days. 08/01/21 15:20 Urine, Clean Catch Legionella Antigen - Final 08/01/21 15:20 Urine, Clean Catch Streptococcus pneumoniae Antigen (M - Final 08/01/21 07:45 Mucosa - Nose Respiratory Panel (PCR) - Final 08/01/21 03:20 Nasal Secretion SARS-CoV-2 Antigen (Rapid) - Final Physical Exam Const alert Constitutional Narrative: Less anxious compared to yesterday. Tolerating nasal cannula General Appearance: cooperative; Negative for on BiPAP Nutritional Appearance: obese HEENT normocephalic and head/scalp atraumatic Eyes PERRL and EOMs intact bilaterally Neck supple General: trachea midline Chest inspection of chest normal Chest: symmetrical chest wall rise; Negative for crepitus Resp Effort and Inspection: tachypneic Auscultation: diminished lung sounds; Negative for rales, rhonchi or wheezes Cardio regular rhythm, S1 normal heart sound and S2 normal heart sound Rate: bradycardia GI normal to inspection, nondistended, normoactive bowel sounds Extremity no clubbing, cyanosis or edema Skin no rashes or lesions noted Neuro CN's II-XII intact bilaterally, moves all extremities and no focal motor deficits Psych Mood & Affect: anxious Charges/Coding Visit Charges Inpatient E&M: 67175 Subs Hosp L2
[2021-08-08] MEDS: Famotidine 20 MG Tablet PO ×2 (10:32→22:04)
[2021-08-08] MEDS: 0.9% Saline Lock 10 ML Syringe IV (10:32)
[2021-08-08] MEDS: Ascorbic Acid 500 MG Tablet PO ×2 (10:32→16:37)
[2021-08-08] MEDS: dexAMETHasone 4 MG/ML Vial 6 MG IV (10:33)
[2021-08-08] MEDS: Enoxaparin 30 MG/0.3 ML Syringe SC ×2 (10:33→22:03)
[2021-08-08] MEDS: Potassium Chloride Oral Tablet 20 MEQ 40 MEQ PO ×2 (10:40→16:37)
[2021-08-08] MEDS: Furosemide 40 MG/4 ML Vial IV (10:40)
[2021-08-08] MEDS: Insulin Lispro 100 UNIT/ML INSULN.PEN SC ×3 (11:18→22:06)
[2021-08-08 12:50] LABS: Bedside Glucose 227 mg/dL (70-110)
--- NOTE | 2021-08-08 14:13 | PCM.PN.HOSP ---
Subjective Subjective Still on 600 nasal cannula, he had gotten down to about 4 L yesterday. We will continue to monitor and will need an ambulatory pulse ox prior to discharge Objective Data Objective Data Vital Signs: Vital Signs Temp Pulse Resp BP Pulse Ox 96.4 F L 65 18 130/70 H 92 08/08/21 10:30 08/08/21 10:30 08/08/21 10:30 08/08/21 10:30 08/08/21 11:03 Oxygen Flow Rate (L/min) [ 15 AMBULATING with Oxygen #2] Oxygen Flow Rate (L/min) [ 5 AMBULATING with Oxygen #1] Oxygen Flow Rate (L/min) [At 5 REST with Oxygen] Oxygen Flow Rate (L/min) 5 Oxygen Delivery Method Nasal Cannula Weight: 234 lb 9.149 oz Body Mass Index (BMI) 36.0 Intake & Output: Intake and Output for Last 24 Hours 08/07/21 08/08/21 08/09/21 03:59 03:59 03:59 Intake Total 920 / 920 940 / 940 Output Total 1100 / 1100 400 / 400 Balance -180 / -180 540 / 540 Lab / Micro Data Result Diagrams: 08/07/21 03:15 08/08/21 06:57 Labs: Laboratory Results - last 24 hr 08/07/21 16:21: POC Glucose 234 H 08/07/21 22:28: POC Glucose 141 H 08/08/21 06:25: POC Glucose 127 H 08/08/21 06:57: Sodium 140, Potassium 3.6, Chloride 107, Carbon Dioxide 28.0, Anion Gap 5, BUN 31 H, Creatinine 0.72, Estim Creat Clear Calc 72.16, Est GFR (MDRD) Af Amer 137, Est GFR (MDRD) Non-Af 114, BUN/Creatinine Ratio 42.8 H, Glucose 112 H, Calcium 8.5 08/08/21 11:14: POC Glucose 227 H Micro: Microbiology 08/01/21 03:31 Blood Culture (Wb) - Anticubital Right Blood Culture - Final No growth in 5 days. 08/01/21 03:25 Blood Culture (Wb) - Anticubital Left Blood Culture - Final No growth in 5 days. 08/01/21 15:20 Urine, Clean Catch Legionella Antigen - Final 08/01/21 15:20 Urine, Clean Catch Streptococcus pneumoniae Antigen (M - Final 08/01/21 07:45 Mucosa - Nose Respiratory Panel (PCR) - Final 08/01/21 03:20 Nasal Secretion SARS-CoV-2 Antigen (Rapid) - Final Physical Exam Const alert, oriented x3 and no apparent distress General Appearance: cooperative HEENT normocephalic and moist oral mucous membranes Eyes PERRL, EOMs intact bilaterally and conjunctivae normal Neck supple and no JVD Resp normal respiratory effort, no retractions, no use of accessory muscles and clear to auscultation bilaterally Effort and Inspection: tachypneic Auscultation: diminished lung sounds; Negative for crackles, rales, rhonchi or wheezes Cardio regular rate, regular rhythm, S1 normal heart sound, S2 normal heart sound and no murmurs GI soft to palpation, non-tender and non-distended; Negative for hepatosplenomegaly Extremity no clubbing, cyanosis or edema Skin no rashes or lesions noted Neuro no focal motor deficits and no sensory deficits noted Psych affect normal Appearance: appropriate Assessment & Plan Assessment/Plan (1) Pneumonia due to COVID-19 virus: (2) COVID-19: PLAN: 1. Acute hypoxic respiratory failure secondary to COVID-19 pneumonia -Continue with high flow nasal cannula can increase to air Vo as needed -Continue with Decadron and baricitinib, not a candidate for remdesivir secondary to timing -Appreciate pulmonology assistance -Continue with pulmonary toileting -Ambulatory pulse ox demonstrated need of 15 L to maintain oxygen saturation of 92 2. HTN/HLD/CAD status post stent -Blood pressure stable -Continue to hold his home medications -Continue with Lasix as needed 3. DM2 -We will hold his blood sugar medications -Continue with sliding scale insulin, Accu-Cheks AC at bedtime -We will make adjustments as necessary DVT: Lovenox Charges/Coding Visit Charges Inpatient E&M: 54397 Subs Hosp L2
[2021-08-08 17:25] LABS: Bedside Glucose 256 mg/dL (70-110)
[2021-08-08] MEDS: MELATONIN 3 MG TABLET PO (22:15)
[2021-08-08 23:01] LABS: Bedside Glucose 165 mg/dL (70-110)
[2021-08-09] VITALS (8 sets, daily range): BP systolic 122–156; BP diastolic 61–84; PULSE 53–74; RESP 16–20; TEMP 36.1–36.8; O2SAT 92–96
[2021-08-09 06:50] LABS: Bedside Glucose 119 mg/dL (70-110)
[2021-08-09 07:33] LABS: ALB/GLOB Ratio 0.6 RATIO (0.9-2.4); AST(SGOT) 32 U/L (15-37); Alanine Aminotransfer ALT/SGPT 115 U/L (16-61); Albumin, Serum 2.2 g/dL (3.2-5.0); Alkaline Phosphatase 86 U/L (45-117); Anion Gap 6 (5-15); BUN 34 mg/dL (7-18); BUN/Creat Ratio 46.5 RATIO (10-20); Calcium,Total 8.5 mg/dL (8.5-10.1); Chloride 108 mmol/L (98-107); Creatinine, Serum 0.73 mg/dL (0.70-1.30); EST Glomerular Filtration Rate 112 mL/min (>60); Est Glom Filt Rate - Afr Amer 136 mL/min (>60); Estimated Creatinine Clearance 72.16 ml/min; Globulin 3.7 g/dL (2.2-4.2); Glucose 120 mg/dL (74-106); Potassium 4.1 mmol/L (3.5-5.1); Protein, Total 5.9 g/dL (6.4-8.2); Sodium Level 141 mmol/L (136-145)
[2021-08-09] MEDS: 0.9% Saline Lock 10 ML Syringe IV ×2 (09:26→20:55)
[2021-08-09] MEDS: Enoxaparin 30 MG/0.3 ML Syringe SC ×2 (09:27→20:53)
[2021-08-09] MEDS: dexAMETHasone 4 MG/ML Vial 6 MG IV (09:28)
[2021-08-09] MEDS: Famotidine 20 MG Tablet PO ×2 (09:29→20:53)
[2021-08-09] MEDS: Ascorbic Acid 500 MG Tablet PO ×2 (09:29→17:06)
[2021-08-09] MEDS: Furosemide 40 MG/4 ML Vial IV ×2 (09:29→17:06)
--- NOTE | 2021-08-09 10:31 | PN.CC_ITS ---
Assessment & Plan Assessment/Plan (1) COVID-19: (2) Respiratory failure: QUALIFIERS: Chronicity: acute Respiratory failure complication: hypoxia Qualified Code(s): J96.01 - Acute respiratory failure with hypoxia PLAN: RECOMMENDATIONS: 1. Continue nasal cannula and wean as tolerated 2. Continue to encourage incentive spirometer, Acapella and out of bed as tolerated 3. Continue Decadron to complete 10-day treatment course. 4. Continue baricitinib per ID recommendations. 5. Aggressive challenge with diuretics and replete potassium as necessary 6. Obtain walking oximetry IMPRESSIONS: 1. Acute hypoxemic respiratory failure secondary to COVID-19 pneumonia The patient presented to the hospital with progressive Covid symptoms, which initially began on July 20. The patient is currently outside of the window to administer remdesivir. Therefore, he will be continued on Decadron to complete a 10-day treatment course. CTA showed no evidence for PE. Therefore, the patient will be continued on twice daily Lovenox. Infectious diseases has placed the patient on baricitinib, which will be continued to complete a treatment course. There is mild increase in LFTs, but not enough to discontinue therapy in my opinion. Continue supplemental oxygen to maintain saturations at or above 90%. Periodic use of diuretics can be entertained to maintain euvolemic state. Significant desaturation with ambulation more consistent with pulmonary hypertension. We will institute with aggressive diuresis. Patient potentially able to be discharged in the next 24 to 48 hours. Recheck labs in a.m. If discharged, patient can follow-up in our office in 4 to 6 weeks to evaluate for cessation of supplemental oxygen. 2. Obesity/diabetes mellitus/history of coronary artery disease status post PCI/hypertension/hyperlipidemia Complicates care, management, recovery and prognosis. Continue home medications as indicated. This note was generated with [employer] dictation software. It may contain incorrect words, spelling, and punctuation that were not noted in checking the note before signing. Subjective Subjective Patient did well overnight. Patient overall feels subjectively unchanged compared to previous. Patient denies any chest pain, but is still having a cough with intermittent production. Patient did have a walking oximetry yesterday, but required 15 L nasal cannula to maintain saturations with ambulation. Objective Data Objective Data Vital Signs: Vital Signs Temp Pulse Resp BP Pulse Ox 36.8 C 74 20 H 122/61 H 92 08/09/21 09:22 08/09/21 09:22 08/09/21 09:22 08/09/21 09:22 08/09/21 09:22 Oxygen Flow Rate (L/min) [ 15 AMBULATING with Oxygen #2] Oxygen Flow Rate (L/min) [ 5 AMBULATING with Oxygen #1] Oxygen Flow Rate (L/min) [At 5 REST with Oxygen] Oxygen Flow Rate (L/min) 4 Oxygen Delivery Method Nasal Cannula Weight: 106.4 kg Body Mass Index (BMI) 36.0 Intake & Output: Intake and Output for Last 24 Hours 08/07/21 08/08/21 08/09/21 23:59 23:59 23:59 Intake Total 1080 / 1180 100 / 400 600 / 600 Output Total 700 / 700 1000 / 1000 Balance 380 / 480 -900 / -600 600 / 600 Lab / Micro Data Result Diagrams: 08/07/21 03:15 08/09/21 06:40 Labs: Laboratory Results - last 24 hr 08/08/21 11:14: POC Glucose 227 H 08/08/21 16:35: POC Glucose 256 H 08/08/21 22:06: POC Glucose 165 H 08/09/21 06:21: POC Glucose 119 H 08/09/21 06:40: Sodium 141, Potassium 4.1, Chloride 108 H, Carbon Dioxide 27.0, Anion Gap 6, BUN 34 H, Creatinine 0.73, Estim Creat Clear Calc 72.16, Est GFR (MDRD) Af Amer 136, Est GFR (MDRD) Non-Af 112, BUN/Creatinine Ratio 46.5 H, Glucose 120 H, Calcium 8.5, Total Bilirubin 1.40 H, AST 32, ALT 115 H, Alkaline Phosphatase 86, Total Protein 5.9 L, Albumin 2.2 L, Globulin 3.7, Albumin/Globulin Ratio 0.6 L Micro: Microbiology 08/01/21 03:31 Blood Culture (Wb) - Anticubital Right Blood Culture - Final No growth in 5 days. 08/01/21 03:25 Blood Culture (Wb) - Anticubital Left Blood Culture - Final No growth in 5 days. 08/01/21 15:20 Urine, Clean Catch Legionella Antigen - Final 08/01/21 15:20 Urine, Clean Catch Streptococcus pneumoniae Antigen (M - Final 08/01/21 07:45 Mucosa - Nose Respiratory Panel (PCR) - Final 08/01/21 03:20 Nasal Secretion SARS-CoV-2 Antigen (Rapid) - Final Physical Exam Const alert Constitutional Narrative: Less anxiety. Tolerating nasal cannula General Appearance: cooperative; Negative for on BiPAP Nutritional Appearance: obese HEENT normocephalic and head/scalp atraumatic Eyes PERRL and EOMs intact bilaterally Neck supple General: trachea midline Chest inspection of chest normal Chest: symmetrical chest wall rise; Negative for crepitus Resp Effort and Inspection: tachypneic Auscultation: diminished lung sounds; Negative for rales, rhonchi or wheezes Cardio regular rhythm, S1 normal heart sound and S2 normal heart sound Rate: bradycardia GI normal to inspection, nondistended, normoactive bowel sounds Extremity no clubbing, cyanosis or edema Skin no rashes or lesions noted Neuro CN's II-XII intact bilaterally, moves all extremities and no focal motor deficits Charges/Coding Visit Charges Inpatient E&M: 63418 Subs Hosp L2
[2021-08-09] MEDS: Insulin Lispro 100 UNIT/ML INSULN.PEN SC ×3 (11:59→20:53)
--- NOTE | 2021-08-09 13:10 | PN.HOSP_ITS ---
Subjective Subjective Doing well, no issues overnight. He is maintaining his oxygen sats on 4 L nasal cannula yesterday he needed 15 L for ambulation. Objective Data Objective Data Vital Signs: Vital Signs Temp Pulse Resp BP Pulse Ox 98.2 F 74 20 H 122/61 H 96 08/09/21 09:22 08/09/21 09:22 08/09/21 09:22 08/09/21 09:22 08/09/21 10:53 Oxygen Flow Rate (L/min) [ 15 AMBULATING with Oxygen #2] Oxygen Flow Rate (L/min) [ 5 AMBULATING with Oxygen #1] Oxygen Flow Rate (L/min) [At 5 REST with Oxygen] Oxygen Flow Rate (L/min) 4 Oxygen Delivery Method Nasal Cannula Weight: 234 lb 9.149 oz Body Mass Index (BMI) 36.0 Intake & Output: Intake and Output for Last 24 Hours 08/08/21 08/09/21 08/10/21 03:59 03:59 03:59 Intake Total 940 / 940 300 / 300 300 / 300 Output Total 400 / 400 1000 / 1000 Balance 540 / 540 -700 / -700 300 / 300 Lab / Micro Data Result Diagrams: 08/07/21 03:15 08/09/21 06:40 Labs: Laboratory Results - last 24 hr 08/08/21 16:35: POC Glucose 256 H 08/08/21 22:06: POC Glucose 165 H 08/09/21 06:21: POC Glucose 119 H 08/09/21 06:40: Sodium 141, Potassium 4.1, Chloride 108 H, Carbon Dioxide 27.0, Anion Gap 6, BUN 34 H, Creatinine 0.73, Estim Creat Clear Calc 72.16, Est GFR (M DRD) Af Amer 136, Est GFR (MDRD) Non-Af 112, BUN/Creatinine Ratio 46.5 H, Glucose 120 H, Calcium 8.5, Total Bilirubin 1.40 H, AST 32, ALT 115 H, Alkaline Phosphatase 86, Total Protein 5.9 L, Albumin 2.2 L, Globulin 3.7, Albumin/Globulin Ratio 0.6 L Micro: Microbiology 08/01/21 03:31 Blood Culture (Wb) - Anticubital Right Blood Culture - Final No growth in 5 days. 08/01/21 03:25 Blood Culture (Wb) - Anticubital Left Blood Culture - Final No growth in 5 days. 08/01/21 15:20 Urine, Clean Catch Legionella Antigen - Final 08/01/21 15:20 Urine, Clean Catch Streptococcus pneumoniae Antigen (M - Final 08/01/21 07:45 Mucosa - Nose Respiratory Panel (PCR) - Final 08/01/21 03:20 Nasal Secretion SARS-CoV-2 Antigen (Rapid) - Final Physical Exam Const alert, oriented x3 and no apparent distress General Appearance: cooperative HEENT normocephalic and moist oral mucous membranes Eyes PERRL, EOMs intact bilaterally and conjunctivae normal Neck supple and no JVD Resp normal respiratory effort, no retractions, no use of accessory muscles and clear to auscultation bilaterally Auscultation: diminished lung sounds; Negative for crackles, rales, rhonchi or wheezes Cardio regular rate, regular rhythm, S1 normal heart sound, S2 normal heart sound and no murmurs GI soft to palpation, non-tender and non-distended; Negative for hepatosplenomegaly Extremity no clubbing, cyanosis or edema Skin no rashes or lesions noted Neuro no focal motor deficits and no sensory deficits noted Psych affect normal Appearance: appropriate Assessment & Plan Assessment/Plan (1) Pneumonia due to COVID-19 virus: (2) COVID-19: PLAN: 1. Acute hypoxic respiratory failure secondary to COVID-19 pneumonia -Continue with high flow nasal cannula can increase to air Vo as needed -Continue with Decadron and baricitinib, not a candidate for remdesivir secondary to timing -Appreciate pulmonology assistance -Continue with pulmonary toileting -Ambulatory pulse ox demonstrated need of 15 L to maintain oxygen saturation of 92 yesterday 2. HTN/HLD/CAD status post stent -Blood pressure stable -Continue to hold his home medications -Continue with Lasix as needed 3. DM2 -We will hold his blood sugar medications -Continue with sliding scale insulin, Accu-Cheks AC at bedtime -We will make adjustments as necessary DVT: Lovenox Charges/Coding Visit Charges Inpatient E&M: 37825 Subs Hosp L2
[2021-08-09 14:21] LABS: Bedside Glucose 260 mg/dL (70-110)
[2021-08-09 21:20] LABS: Bedside Glucose 289 mg/dL (70-110)
[2021-08-09 23:51] LABS: Bedside Glucose 236 mg/dL (70-110)
[2021-08-10] VITALS (13 sets, daily range): BP systolic 139–162; BP diastolic 68–83; PULSE 51–68; RESP 18–20; TEMP 36.6–37.2; O2SAT 82–98
[2021-08-10 05:55] LABS: Bedside Glucose 117 mg/dL (70-110)
[2021-08-10] MEDS: Enoxaparin 30 MG/0.3 ML Syringe SC (08:27)
[2021-08-10] MEDS: Famotidine 20 MG Tablet PO (08:27)
[2021-08-10] MEDS: dexAMETHasone 4 MG/ML Vial 6 MG IV (08:27)
[2021-08-10] MEDS: Ascorbic Acid 500 MG Tablet PO ×2 (08:27→16:46)
[2021-08-10 09:11] LABS: Anion Gap 8 (5-15); BUN 31 mg/dL (7-18); BUN/Creat Ratio 43.4 RATIO (10-20); Calcium,Total 8.7 mg/dL (8.5-10.1); Chloride 103 mmol/L (98-107); Creatinine, Serum 0.72 mg/dL (0.70-1.30); EST Glomerular Filtration Rate 115 mL/min (>60); Est Glom Filt Rate - Afr Amer 139 mL/min (>60); Estimated Creatinine Clearance 72.16 ml/min; Glucose 104 mg/dL (74-106); Potassium 3.6 mmol/L (3.5-5.1); Sodium Level 141 mmol/L (136-145)
--- NOTE | 2021-08-10 10:39 | PN.CC_ITS ---
Assessment & Plan Assessment/Plan (1) COVID-19: (2) Respiratory failure: QUALIFIERS: Chronicity: acute Respiratory failure complication: hypoxia Qualified Code(s): J96.01 - Acute respiratory failure with hypoxia PLAN: RECOMMENDATIONS: 1. Continue nasal cannula and wean as tolerated 2. Continue to encourage incentive spirometer, Acapella and out of bed as tolerated 3. Continue Decadron to complete 10-day treatment course. 4. Continue baricitinib per ID recommendations. 5. Aggressive challenge with diuretics and replete potassium as necessary 6. Okay to discharge from a pulmonary perspective 7. Follow-up in our office in 4 to 6 weeks for reevaluation of supplemental oxygen. IMPRESSIONS: 1. Acute hypoxemic respiratory failure secondary to COVID-19 pneumonia The patient presented to the hospital with progressive Covid symptoms, which initially began on July 20. The patient is currently outside of the window to administer remdesivir. Therefore, he will be continued on Decadron to complete a 10-day treatment course. CTA showed no evidence for PE. Therefore, the patient will be continued on twice daily Lovenox. Infectious diseases has placed the patient on baricitinib, which will be continued to complete a treatment course. There is mild increase in LFTs, but not enough to discontinue therapy in my opinion. Continue supplemental oxygen to maintain saturations at or above 90%. Periodic use of diuretics can be entertained to maintain euvolemic state. Significant desaturation with ambulation previously more consistent with pulmonary hypertension. This has improved significantly with diuresis. Okay to discharge from a pulmonary perspective. Recheck labs in a.m. If discharged, patient can follow-up in our office in 4 to 6 weeks to evaluate for cessation of supplemental oxygen. 2. Obesity/diabetes mellitus/history of coronary artery disease status post PCI/hypertension/hyperlipidemia Complicates care, management, recovery and prognosis. Continue home medications as indicated. This note was generated with [employer] dictation software. It may contain incorrect words, spelling, and punctuation that were not noted in checking the note before signing. Subjective Subjective Patient did okay overnight. No acute issues were reported. It appears patient had a walking oximetry this morning showing 5 L nasal cannula required with ambu lation. Patient reports occasional cough. No chest pain reported. Objective Data Objective Data Vital Signs: Vital Signs Temp Pulse Resp BP Pulse Ox 36.8 C 64 20 H 162/83 H 94 08/10/21 08:14 08/10/21 08:14 08/10/21 08:40 08/10/21 08:14 08/10/21 09:10 Oxygen Flow Rate (L/min) [ 3 AMBULATING with Oxygen #2] Oxygen Flow Rate (L/min) [ 5 AMBULATING with Oxygen #1] Oxygen Flow Rate (L/min) [At 5 REST with Oxygen] Oxygen Flow Rate (L/min) 3 Oxygen Delivery Method Nasal Cannula Weight: 106.866 kg Body Mass Index (BMI) 36.0 Intake & Output: Intake and Output for Last 24 Hours 08/08/21 08/09/21 08/10/21 23:59 23:59 23:59 Intake Total 100 / 400 950 / 950 Output Total 1000 / 1000 500 / 1100 600 / 600 Balance -900 / -600 450 / -150 -600 / -600 Lab / Micro Data Result Diagrams: 08/07/21 03:15 08/10/21 07:35 Labs: Laboratory Results - last 24 hr 08/09/21 11:57: POC Glucose 260 H 08/09/21 16:44: POC Glucose 236 H 08/09/21 20:51: POC Glucose 289 H 08/10/21 05:45: POC Glucose 117 H 08/10/21 07:35: Sodium 141, Potassium 3.6, Chloride 103, Carbon Dioxide 30.0, Anion Gap 8, BUN 31 H, Creatinine 0.72, Estim Creat Clear Calc 72.16, Est GFR (MDRD) Af Amer 139, Est GFR (MDRD) Non-Af 115, BUN/Creatinine Ratio 43.4 H, Glucose 104, Calcium 8.7 Micro: Microbiology 08/01/21 03:31 Blood Culture (Wb) - Anticubital Right Blood Culture - Final No growth in 5 days. 08/01/21 03:25 Blood Culture (Wb) - Anticubital Left Blood Culture - Final No growth in 5 days. 08/01/21 15:20 Urine, Clean Catch Legionella Antigen - Final 08/01/21 15:20 Urine, Clean Catch Streptococcus pneumoniae Antigen (M - Final 08/01/21 07:45 Mucosa - Nose Respiratory Panel (PCR) - Final 08/01/21 03:20 Nasal Secretion SARS-CoV-2 Antigen (Rapid) - Final Physical Exam Const alert Constitutional Narrative: Less anxiety. Tolerating nasal cannula General Appearance: cooperative; Negative for on BiPAP Nutritional Appearance: obese HEENT normocephalic and head/scalp atraumatic Eyes PERRL and EOMs intact bilaterally Neck supple General: trachea midline Chest inspection of chest normal Chest: symmetrical chest wall rise; Negative for crepitus Resp Effort and Inspection: tachypneic Auscultation: diminished lung sounds; Negative for rales, rhonchi or wheezes Cardio regular rhythm, S1 normal heart sound and S2 normal heart sound Rate: bradycardia GI normal to inspection, nondistended, normoactive bowel sounds Extremity no clubbing, cyanosis or edema Skin no rashes or lesions noted Neuro CN's II-XII intact bilaterally, moves all extremities and no focal motor deficits Charges/Coding Visit Charges Inpatient E&M: 52889 Subs Hosp L2
[2021-08-10] MEDS: Furosemide 40 MG/4 ML Vial IV (11:16)
[2021-08-10] MEDS: Potassium Chloride Oral Tablet 20 MEQ 40 MEQ PO (11:16)
[2021-08-10] MEDS: 0.9% Saline Lock 10 ML Syringe IV (11:17)
[2021-08-10] MEDS: Insulin Lispro 100 UNIT/ML INSULN.PEN SC ×2 (11:20→16:42)
[2021-08-10 11:31] LABS: Bedside Glucose 266 mg/dL (70-110)
--- NOTE | 2021-08-10 15:02 | PCM.PN.HOSP ---
Subjective Subjective Doing well, no issues overnight. Did have an ambulatory pulse ox and was maintaining his oxygen saturations on less than 6 L on ambulation however he does not feel quite ready to go home today Objective Data Objective Data Vital Signs: Vital Signs Temp Pulse Resp BP Pulse Ox 98.9 F 68 18 139/72 H 89 08/10/21 14:18 08/10/21 14:18 08/10/21 14:18 08/10/21 14:18 08/10/21 14:20 Oxygen Flow Rate (L/min) [ 3 AMBULATING with Oxygen #2] Oxygen Flow Rate (L/min) [ 3 AMBULATING with Oxygen #1] Oxygen Flow Rate (L/min) [At 5 REST with Oxygen] Oxygen Flow Rate (L/min) 3 Oxygen Delivery Method Nasal Cannula Weight: 235 lb 9.6 oz Body Mass Index (BMI) 36.0 Intake & Output: Intake and Output for Last 24 Hours 08/09/21 08/10/21 08/11/21 03:59 03:59 03:59 Intake Total 300 / 300 650 / 650 950 / 950 Output Total 1000 / 1000 1100 / 1100 1300 / 1300 Balance -700 / -700 -450 / -450 -350 / -350 Lab / Micro Data Result Diagrams: 08/07/21 03:15 08/10/21 07:35 Labs: Laboratory Results - last 24 hr 08/09/21 16:44: POC Glucose 236 H 08/09/21 20:51: POC Glucose 289 H 08/10/21 05:45: POC Glucose 117 H 08/10/21 07:35: Sodium 141, Potassium 3.6, Chloride 103, Carbon Dioxide 30.0, Anion Gap 8, BUN 31 H, Creatinine 0.72, Estim Creat Clear Calc 72.16, Est GFR (MDRD) Af Amer 139, Est GFR (MDRD) Non-Af 115, BUN/Creatinine Ratio 43.4 H, Glucose 104, Calcium 8.7 08/10/21 11:13: POC Glucose 266 H Micro: Microbiology 08/01/21 03:31 Blood Culture (Wb) - Anticubital Right Blood Culture - Final No growth in 5 days. 08/01/21 03:25 Blood Culture (Wb) - Anticubital Left Blood Culture - Final No growth in 5 days. 08/01/21 15:20 Urine, Clean Catch Legionella Antigen - Final 08/01/21 15:20 Urine, Clean Catch Streptococcus pneumoniae Antigen (M - Final 08/01/21 07:45 Mucosa - Nose Respiratory Panel (PCR) - Final 08/01/21 03:20 Nasal Secretion SARS-CoV-2 Antigen (Rapid) - Final Physical Exam Const alert, oriented x3 and no apparent distress General Appearance: cooperative HEENT normocephalic and moist oral mucous membranes Eyes PERRL, EOMs intact bilaterally and conjunctivae normal Neck supple and no JVD Resp normal respiratory effort, no retractions, no use of accessory muscles and clear to auscultation bilaterally Effort and Inspection: tachypneic Auscultation: diminished lung sounds; Negative for crackles, rales, rhonchi or wheezes Cardio regular rate, regular rhythm, S1 normal heart sound, S2 normal heart sound and no murmurs GI soft to palpation, non-tender and non-distended; Negative for hepatosplenomegaly Extremity no clubbing, cyanosis or edema Skin no rashes or lesions noted Neuro no focal motor deficits and no sensory deficits noted Psych affect normal Appearance: appropriate Assessment & Plan Assessment/Plan (1) Pneumonia due to COVID-19 virus: (2) COVID-19: PLAN: 1. Acute hypoxic respiratory failure secondary to COVID-19 pneumonia -Continue with baricitinib, he completed his Decadron was not a candidate for remdesivir -Appreciate pulmonology assistance -Continue with pulmonary toileting -Ambulatory pulse ox demonstrated need of 3 L to maintain oxygen saturation however he does not feel quite ready to go home yet 2. HTN/HLD/CAD status post stent -Blood pressure stable -Continue to hold his home medications -Continue with Lasix as needed 3. DM2 -We will hold his blood sugar medications -Continue with sliding scale insulin, Accu-Cheks AC at bedtime -We will make adjustments as necessary DVT: Lovenox Charges/Coding Visit Charges Inpatient E&M: 39477 Subs Hosp L2
[2021-08-10 16:41] LABS: Bedside Glucose 219 mg/dL (70-110)
--- NOTE | 2021-08-10 16:43 | PCM.DC ---
Discharge Instructions Diet Discharge Diet: Low fat / Low cholesterol and Carb Control Diet Activity Discharge Activity: Return to Normal Activity Dressing / Incision Call your doctor if you observe: Fever of 101 or Higher, Shortness of breath, Dizziness, Fainting spells, Swelling in the ankles, Chest pain and Increased palpitations (irregular heartbeat) Follow Up Care Test Results: Test results from this visit will be discussed in further detail at your follow-up appointment, if applicable. Discharge Plan Admission Admit Date/Time: 08/01/21 04:40 Attending Provider: Dillon Jackson Consulting Providers: Ole Espana ; Jerry Márquez Discharge Orders/Prescriptions Prescriptions: Continued metformin 500 mg tablet 1,000 mg PO DAILY RF: 0 naproxen 250 mg tablet 250 mg PO BID RF: 0 aspirin 81 mg Tablet,Chewable 81 mg PO DAILY RF: 0 atorvastatin 40 mg tablet 40 mg PO QHS RF: 0 clopidogrel 75 mg tablet 75 mg PO DAILY RF: 0 chlorthalidone 25 mg tablet 25 mg PO DAILY RF: 0 amlodipine 5 mg tablet 5 mg PO DAILY RF: 0 allopurinol 300 mg tablet 300 mg PO DAILY RF: 0 furosemide 20 mg tablet 20 mg PO DAILY RF: 0 lisinopril 40 mg tablet 40 mg PO DAILY RF: 0 Held carvedilol 25 mg tablet 25 mg PO BID RF: 0 Hold Instructions: Resume on 08/14/21. No Action atorvastatin 40 mg tablet 40 mg PO DAILY RF: 0 metformin 500 mg tablet 500 mg PO DAILY RF: 0 clopidogrel 75 mg tablet 75 mg PO DAILY RF: 0 chlorthalidone 25 mg tablet 25 mg PO DAILY RF: 0 amlodipine 5 mg tablet 5 mg PO DAILY RF: 0 allopurinol 300 mg tablet 300 mg PO DAILY RF: 0 furosemide 20 mg tablet 20 mg PO DAILY RF: 0 lisinopril 40 mg tablet 40 mg PO DAILY RF: 0 metformin 500 mg tablet 500 mg PO UD RF: 0 Referrals / Follow Up: GEETA HASSAN [Other] Michelle Hassan MD [NON-STAFF] - Disposition Disposition (needs filled in before D/C Order can be placed): Home, Self Care
--- NOTE | 2021-08-10 16:50 | DS.PCM_ITS ---
Providers Date of Admission: 08/01/21 Primary Care Physician: GEETA HASSAN Consultations 08/01/21 04:50 Consult: Infectious Disease Routine Consulting Provider: Ole Espana Reason for Consult: COVID PNA, Resp failure EMERGENT Consult: No Notified: Yes Date Notified: 08/01/21 Time Notified: 10:07 Method of Notification: Text 08/01/21 05:41 Consult: Accounts Payable Supervisor / Pulmonary Medicine Routine Consulting Provider: Jerry Márquez Reason for Consult: Resp failure, COVID PNA. EMERGENT Consult: No Notified: Yes Date Notified: 08/01/21 Time Notified: 04:43 Method of Notification: cortext Reason For Visit: RESPIRATORY FAILURE, COVID PNA Diagnosis Discharge Diagnosis (1) Pneumonia due to COVID-19 virus: Status: Acute Code(s): U07.1 - COVID-19; J12.82 - Pneumonia due to coronavirus disease 2019 (2) COVID-19: Status: Acute Code(s): U07.1 - COVID-19 Medications at Discharge Home Medications allopurinol 300 mg PO DAILY 08/01/21 allopurinol 300 mg PO DAILY 08/01/21 amlodipine 5 mg PO DAILY 08/01/21 amlodipine 5 mg PO DAILY 08/01/21 aspirin 81 mg PO DAILY 08/01/21 atorvastatin 40 mg PO DAILY 08/01/21 atorvastatin 40 mg PO QHS 08/01/21 carvedilol 25 mg PO BID 08/01/21 chlorthalidone 25 mg PO DAILY 08/01/21 chlorthalidone 25 mg PO DAILY 08/01/21 clopidogrel 75 mg PO DAILY 08/01/21 clopidogrel 75 mg PO DAILY 08/01/21 furosemide 20 mg PO DAILY 08/01/21 furosemide 20 mg PO DAILY 08/01/21 lisinopril 40 mg PO DAILY 08/01/21 lisinopril 40 mg PO DAILY 08/01/21 metformin 1,000 mg PO DAILY 08/01/21 metformin 500 mg PO DAILY 08/01/21 metformin 500 mg PO UD 08/01/21 naproxen 250 mg PO BID 08/01/21 Hospital Course Operations None Procedures None Summary of Care Provided Minutes Spent on Discharge: 45 Hospital Course: Per HPI: The patient is a 71 y/o M w/ PMHx: CAD s/p PCI, HTN, HLD, Diabetes mellitus type II, Obesity who presents to the [facility] ED on 08/01/21 with history of onset Covid type symptoms on 07/20/2021, testing eventually on 07/26/2021 with positive status with progressively worsening dyspnea as well as cough with EMS call secondary to severity reporting that his oxygenation was 60% upon their initial evaluation with immediate necessity for nonrebreather prompting transition to the ED for evaluation. Patient is unvaccinated. He reports symptoms including loss of taste and smell, nausea without emesis, occasional loose stool without abdominal cramping in addition to cough and dyspnea. He denies any fever, chills associated. He notes his is also ill but reports her as being less severe. Work-up in the ED included T 98.3, heart 66, BP 149/75, respiratory rate 30 initially with pulse ox 88% on a nonrebreather transition to BiPAP with respiratory rate 36, 98% on 100 FiO2, rapid Covid antigen positive, CBC w/ WBC 7.6, hemoglobin 14.1, platelet 219 with mildly increased immature granulocytes, D-dimer 2.34, CMP with potassium 3.4, BUN/creatinine 35/0.82, glucose 163, lactic acid 2.3, AST/ALT 79/58, alk phos 77, procalcitonin 0.09, high-sensitivity troponin 24, chest x-ray with multifocal centrally located patchy groundglass opacities, CTPA multifocal pneumonia consistent with Covid pneumonia with no evidence of pulmonary emboli, cardiomegaly with coronary disease, partially visualized splenomegaly. In the ED given patient presentation, patient as noted transition to BiPAP, administered IV Decadron 6 mg x 1. Hospital Course: 1. Acute hypoxic respiratory failure secondary to COVID-19 pneumonia -Continue with baricitinib, he completed his Decadron was not a candidate for remdesivir -Appreciate pulmonology assistance -Continue with pulmonary toileting -Ambulatory pulse ox demonstrated need of 3 L to maintain oxygen saturation, initially he was unsure about going home however he feels like he probably should go home today, while he feels good. Symptoms started 07/20/2021 therefore he is currently out of quarantine. I do encourage her to get vaccinated as an outpatient. Other than oxygen he requires no further medications for COVID-19. He will need to follow-up with pulmonology in about a month for evaluation of cessation of oxygen use. I discussed the plan for discharge and he expressed understanding of the risk benefits going home and he would like to go home today. 2. HTN/HLD/CAD status post stent -Blood pressure stable -I did resume most of his home medications, however his heart rate has been on the low side without his Coreg therefore this has been held until next week and I do recommend that he follow-up with his PCP prior to restarting this me dication. 3. DM2 -We can resume his home diabetic medications, there is some confusion as to how much Metformin he takes therefore it is elected to place him on 1000 mg daily and he can follow-up with his PCP for follow-up Weight / BMI Weight Weight: 235 lb 9.6 oz Body Mass Index (BMI) 36.0 ABG / Lab / Microbiology Data Result Diagrams: 08/07/21 03:15 08/10/21 07:35 Laboratory: Laboratory Results - last 24 hr 08/09/21 16:44: POC Glucose 236 H 08/09/21 20:51: POC Glucose 289 H 08/10/21 05:45: POC Glucose 117 H 08/10/21 07:35: Sodium 141, Potassium 3.6, Chloride 103, Carbon Dioxide 30.0, Anion Gap 8, BUN 31 H, Creatinine 0.72, Estim Creat Clear Calc 72.16, Est GFR (MDRD) Af Amer 139, Est GFR (MDRD) Non-Af 115, BUN/Creatinine Ratio 43.4 H, Glucose 104, Calcium 8.7 08/10/21 11:13: POC Glucose 266 H 08/10/21 16:33: POC Glucose 219 H Microbiology: Microbiology 08/01/21 03:31 Blood Culture (Wb) - Anticubital Right Blood Culture - Final No growth in 5 days. 08/01/21 03:25 Blood Culture (Wb) - Anticubital Left Blood Culture - Final No growth in 5 days. 08/01/21 15:20 Urine, Clean Catch Legionella Antigen - Final 08/01/21 15:20 Urine, Clean Catch Streptococcus pneumoniae Antigen (M - Final 08/01/21 07:45 Mucosa - Nose Respiratory Panel (PCR) - Final 08/01/21 03:20 Nasal Secretion SARS-CoV-2 Antigen (Rapid) - Final D/C Instructions Discharge Diet: Low fat / Low cholesterol and Carb Control Diet Call your doctor if you observe: Fever of 101 or Higher, Shortness of breath, Dizziness, Fainting spells, Swelling in the ankles, Chest pain and Increased palpitations (irregular heartbeat) Meaningful Use Info Meaningful Use Diagnoses (Choose all that apply): None applicable Discharge Plan Admission Admit Date/Time: 08/01/21 04:40 Attending Provider: Dillon Jackson Consulting Providers: Ole Espana ; Jerry Márquez Discharge Orders/Prescriptions Prescriptions: Continued metformin 500 mg tablet 1,000 mg PO DAILY RF: 0 naproxen 250 mg tablet 250 mg PO BID RF: 0 aspirin 81 mg Tablet,Chewable 81 mg PO DAILY RF: 0 atorvastatin 40 mg tablet 40 mg PO QHS RF: 0 clopidogrel 75 mg tablet 75 mg PO DAILY RF: 0 chlorthalidone 25 mg tablet 25 mg PO DAILY RF: 0 amlodipine 5 mg tablet 5 mg PO DAILY RF: 0 allopurinol 300 mg tablet 300 mg PO DAILY RF: 0 furosemide 20 mg tablet 20 mg PO DAILY RF: 0 lisinopril 40 mg tablet 40 mg PO DAILY RF: 0 Held carvedilol 25 mg tablet 25 mg PO BID RF: 0 Hold Instructions: Resume on 08/14/21. No Action atorvastatin 40 mg tablet 40 mg PO DAILY RF: 0 metformin 500 mg tablet 500 mg PO DAILY RF: 0 clopidogrel 75 mg tablet 75 mg PO DAILY RF: 0 chlorthalidone 25 mg tablet 25 mg PO DAILY RF: 0 amlodipine 5 mg tablet 5 mg PO DAILY RF: 0 allopurinol 300 mg tablet 300 mg PO DAILY RF: 0 furosemide 20 mg tablet 20 mg PO DAILY RF: 0 lisinopril 40 mg tablet 40 mg PO DAILY RF: 0 metformin 500 mg tablet 500 mg PO UD RF: 0 Referrals / Follow Up: GEETA HASSAN [Other] Jerry Márquez DO [STAFF PHYSICIAN] - Within 1 Month Michelle Hassan MD [NON-STAFF] - Disposition Disposition (needs filled in before D/C Order can be placed): Home, Self Care Charges/Coding Visit Charges Inpatient E&M: 11498 Disch Hosp
--- NOTE | 2021-08-12 15:44 | CASEMGMT ---
JANI MCCRACKEN Discharge Follow Up Phone Call: MARVINE: 8 Strata:2 Call Date: 08/12/21 Discharge Date: 08/10/21 Time of Call:1542 Duration:<1 min Admitting Dx: Respiratory failure, COVID PNA JANI MCCRACKEN attempted to complete follow up phone call after recent hospitalization. No answer, received vm that was not identified, no message left.
== END 2021-08-10 18:35 | disposition home or self-care (01) | DRG 177 ==
LOC: ED 04:22 → ICU 04:58 → MS3 08-07 18:06
PROVIDERS: Internal Medicine; Internal Medicine Critical Care Medicine; Internal Medicine Infectious Disease; Admitting Provider Family Medicine; Emergency Provider Emergency Medicine; Visit Provider Family Medicine
DX: U07.1 COVID-19 (principal); J12.82 Pneumonia due to coronavirus disease 2019; J96.01 Acute respiratory failure with hypoxia; E87.6 Hypokalemia; I11.9 Hypertensive heart disease without heart failure; I25.10 Atherosclerotic heart disease of native coronary artery without angina pectoris; E11.9 Type 2 diabetes mellitus without complications; E78.5 Hyperlipidemia, unspecified; M10.9 Gout, unspecified; F41.9 Anxiety disorder, unspecified; E66.9 Obesity, unspecified; Z68.36 Body mass index [BMI] 36.0-36.9, adult; Z79.02 Long term (current) use of antithrombotics/antiplatelets; Z79.84 Long term (current) use of oral hypoglycemic drugs; Z79.82 Long term (current) use of aspirin; Z79.1 Long term (current) use of non-steroidal anti-inflammatories (NSAID); Z79.899 Other long term (current) drug therapy; I25.2 Old myocardial infarction; Z95.5 Presence of coronary angioplasty implant and graft
CPT/HCPCS: 36415; 71045; 71275; 80048; 80053; 82728; 82962; 83605; 83615; 83735; 83880; 84100; 84145; 84484; 85025; 85379; 86140; 87040; 87426; 87449; 87633; 93005; 94002; 94003; 94660; 94762; 97110; 97161; 97166; 97530; 97535; 99285; J7030; Q9967; A4216; J1940; J3490

== ENCOUNTER → 2021-10-17 08:11 | Outpatient (CLI) | payer OTHER, SELFPAY ==
[2021-10-17 08:15] VITALS: PULSE 107; PULSE 60; PULSE 71; PULSE 74; PULSE 84; PULSE 85; PULSE 86; PULSE 92; O2SAT 93; O2SAT 95; O2SAT 96; O2SAT 97; O2SAT 98
--- NOTE | 2021-10-17 14:55 | WT_ITS ---
PSN 6 Minute Walk Test 6 Minute Walk Test 6 Minute Walk Test: 6 Minute Walk Test PSN:6-Minute Walk Test Start: 10/17/21 08:35 Freq: Status: Active Protocol: [id number].6MINW Document 10/17/21 08:15 EW (Rec: 10/17/21 08:39 EW [id number]) 6 Minute Walk Test Date Performed 10/17/21 Time Performed 08:15 Height 5 ft 11 in Weight: 108.862 kg Weight in Pounds 240.[address]: Madelyn Jean-Baptiste [employer] Assistive device used: None Pre-test Oxygen Delivery Method Room Air Pulse Ox (%) 96 Pulse Rate (60-100 beats/min) 60 Dyspnea Kelsey Scale (0-10) 0.5 Exertion Kelsey Scale (6-20) 6 1st minute Oxygen Delivery Method Room Air Pulse Ox (%) 98 Pulse Rate (60-100 beats/min) 86 2nd minute Oxygen Delivery Method Room Air Pulse Ox (%) 95 Pulse Rate (60-100 beats/min) 92 3rd minute Oxygen Delivery Method Room Air Pulse Ox (%) 93 Pulse Rate (60-100 beats/min) 85 4th minute Oxygen Delivery Method Room Air Pulse Ox (%) 95 Pulse Rate (60-100 beats/min) 107 H 5th minute Oxygen Delivery Method Room Air Pulse Ox (%) 95 Pulse Rate (60-100 beats/min) 74 6th minute Oxygen Delivery Method Room Air Pulse Ox (%) 95 Pulse Rate (60-100 beats/min) 84 Post-test Oxygen Delivery Method Room Air Pulse Ox (%) 97 Pulse Rate (60-100 beats/min) 71 Dyspnea Kelsey Scale (0-10) 3 Exertion Kelsey Scale (6-20) 11 Full Laps Walked 23 Partial Lap, Number of Tiles Walked 0 Total Distance Walked (ft) 1357 Interpretation Interpretation: Patient was able to ambulate 1357 feet over the course of 6 minutes on room air with no assistive devices or breaks. The patient became desaturation from a peak of 98% to as low as 93%, but no tachycardia was noted. These findings are consistent with a respiratory limitation exercise tolerance. Recommendations Recommendations: No supplemental oxygen is indicated at this time.
== END ==
PROVIDERS: Referring Provider Nurse Practitioner Acute Care; Visit Provider Nurse Practitioner Acute Care
DX: J96.01 Acute respiratory failure with hypoxia (principal)
CPT/HCPCS: 94618